=== PATIENT | male | born 1935 | race Caucasian/White ===

== ENCOUNTER 2023-11-21 11:30 | Inpatient (IN) | payer MEDICARE, SELFPAY ==
[2023-11-21] VITALS (12 sets, daily range): BP systolic 109–156; BP diastolic 48–82; BMI 26.1
[2023-11-21 04:11] LABS: % Basophils 0.3 % (0-2); % Eosinophils 1.2 % (0-6); % Immature Granulocytes 0.3 % (0-0.5); % Lymphocytes 20.5 % (20.5-51.1); % Monocytes 14.5 % (1.7-9.3); % Neutrophils 63.2 % (42.2-75.2); Absolute Lymphocytes 0.7 10^3/uL (1.2-3.4); Absolute Monocytes 0.5 10^3/uL (0.1-0.6); Absolute Neutrophils 2.1 10^3/uL (1.4-6.5); Hematocrit 32.4 % (39.0-52.0); Hemoglobin 11.4 g/dL (13.0-18.0); Mean Corp Hgb Conc. 35.2 g/dL (33.0-37.0); Mean Corpuscular Hgb 32.3 pg (27.0-31.0); Mean Corpuscular Volume 91.8 fL (80.0-94.0); Mean Platelet Volume 10.5 fL (7.4-10.4); Nucleated Red Blood Cells % 0 % (-); Platelet Count 120 10^3/uL (130-400); Red Blood Cell Count 3.53 10^6/uL (4.70-6.10); Red Cell Dist. Width 13.4 % (11.5-14.5); Urine Albumin Negative (Neg - Trace); Urine Bilirubin Negative (Negative); Urine Character Clear (Clear); Urine Color Yellow; Urine Glucose Negative (Negative); Urine Ketone Trace (Negative); Urine Leukocyte Negative (Negative); Urine Nitrite Negative (Negative); Urine Occult Blood Negative (Negative); Urine Urobilinogen Negative (Neg - 1+); White Blood Cell Count 3.4 10^3/uL (4.8-10.8)
[2023-11-21 04:30] LABS: Lactic Acid 1.1 mmol/L (0.7-2.0)
[2023-11-21 04:31] LABS: ALT (SGPT) 10 U/L (0-50); AST (SGOT) 20 U/L (17-59); Albumin 3.7 g/dl (3.5-5.0); Alkaline Phosphatase 93 U/L (38-126); Blood Urea Nitrogen 13 mg/dl (9-20); Calcium 8.7 mg/dl (8.4-10.2); Carbon Dioxide 24 mmol/L (22-30); Chloride 99 mmol/L (98-107); Estimated Creatinine Clearance 83 ml/min; Glucose 166 mg/dl (70-99); Lipase 51 U/L (23-300); Potassium 3.9 mmol/L (3.5-5.1); Sodium 129 mmol/L (135-145); Total Bilirubin 0.7 mg/dl (0.2-1.3); Total Protein 6.4 g/dl (6.3-8.2); eGFR > 60.00
[2023-11-21 04:42] LABS: COVID-19 Antigen Negative (Negative)
[2023-11-21 07:09] LABS: Magnesium 1.7 mg/dl (1.6-2.3)
[2023-11-21] MEDS: NSS 500 IV (07:37)
--- NOTE | 2023-11-21 07:41 | ED.GENMED ---
History of Present Illness
General
Chief Complaint: Abdominal Symptoms
Source: patient and family
Exam Limitations: none
Time Seen by Provider: 11/21/23 04:34
Nursing documentation reviewed up to this point in time: agreed with
Travel History
Have you had any contact with someone who has COVID-19?: No
Do you have any symptoms of coronavirus? Fever > 100 degrees, chills, cough, shortness of breath, sore throat, loss of taste or smell, muscle aches, or headache?: No
History of Present Illness
History of Present Illness:
Patient presents to ED secondary to multiple falls recently, along with nasal congestion and intermittent cough x 3 days. Per [facility], patient has had multiple vomiting episodes over the past 24 hours. Upon arrival, patient is found to be
febrile, which he was not aware of. Patient otherwise has no complaints. Patient is found to be somewhat somnolent upon arrival, which is unusual for the patient, per daughter. Denies diarrhea. Denies abdominal pain. Denies headache. [facility].
Past History
Past History
ED Past Medical History: GERD (Arthritis), HTN, Hypercholesterolemia and Other
Social History
Tobacco: Non-smoker
Alcohol: Daily
Personal:
Living: alone
Family History
Family History: Other ([place])
Review of Systems
Review of Systems
Allergies reviewed?: Yes
All Other Systems: ROS reviewed and negative except as documented in HPI and ROS
Constitutional: Reports no symptoms
EENT: Reports other (Nasal congestion)
Respiratory: Reports cough
Cardiac: Reports no symptoms
ABD/GI: Reports nausea and vomiting; Denies abdominal pain or diarrhea
Musculoskeletal: Reports no symptoms
Skin: Reports no symptoms
Neurological: Reports no symptoms; Denies dizzy or headache
Phy Exam
Physical Exam
Physical Exam:
Physical Exam
General: no apparent distress, not acutely ill. febrile
Head: nc/at. eomi
Neck: supple. no meningeal signs.
Heart: s1/s2 regular rate and rhythm, no murmur. equal radial pulses.
Lungs: no acute respiratory distress. clear bilaterally
Abdomen: normal bowel sounds. not tender.
Neuro: somnolent but easily arousable. no focal neurological deficits
Skin: no rash
Psychiatric: well kept. interactive and cooperative
Extremities: no edema. no calf tenderness.
Course
Orders/Labs/Results
Orders:
Orders
11/21/23 03:54
Complete Blood Count/With Diff Urgent
Comprehensive Metabolic Panel Urgent
Lactic Acid Urgent
Lipase Urgent
Magnesium Urgent
Comment: ADD ON
Osmolality, Random Urine Urgent
Date Specimen was Collected: 11/21/23
Time Specimen was Collected: 03:48
Comment: ADD ON
Serum Osmolality Urgent
Comment: ADD ON
Urinalysis Reflex To Culture Urgent
Date Specimen was Collected: 11/21/23
Time Specimen was Collected: 03:48
Urine Sodium Urgent
Date Specimen was Collected: 11/21/23
Time Specimen was Collected: 03:48
Comment: ADD ON
Blood Culture Q30M
LEAH Source: Blood/Venous
Specimen Description:
11/21/23 04:00
COVID-19 Antigen Urgent
Source: Nasal Swab
Blood Culture Q30M
LEAH Source: Blood/Venous
Specimen Description:
11/21/23 06:15
CT Head W/o Iv Contrast Urgent
Comment:
Reason For Exam: trauma
11/21/23 06:16
Add On- LAB Urgent
Tests Added?: magnesium
0.9% Sodium Chloride 500 ml [Nss] 500 ml IV BOLUS
CR Chest - 2 Views Urgent
Comment:
Reason For Exam: cough/congestion/fever
11/21/23 07:49
Add On- LAB Urgent
Tests Added?: urine sodium, urine osm, serum osm
Acetaminophen [Tylenol] 650 mg PO NOW STA
11/21/23 Lunch
Regular
At Your Request: Non-Participating
Does patient need a safe tray?: No
11/21/23 11:11
Admit/Transfer Patient As Directed
Co-Sign Provider:
Level of Care: Inpatient admission
Assign to:: Medical/Surgical
Physician / Group: dodd/hospitalist
Diagnosis: nausea/fever
Reason for Hospitalization: nausea/fever
Expected length of stay greater than two midnights?: Yes
ELOS- Estimated Length of Stay in days: 4
I certify the patient meets the requirements for IP care: Yes
11/21/23 11:13
Code Status As Directed
Resuscitation Status: Full Code
11/21/23 11:15
CR Abdomen - 2 Views Urgent
Comment:
Reason For Exam: nausea/vomiting
11/21/23 12:12
Influenza A+B Rapid Molecular Routine
LEAH Source: Nasal Swab
Specimen Description:
11/21/23 14:01
Acetaminophen [Tylenol] 650 mg PO Q4HPRN PRN
Bisacodyl [Dulcolax] 10 mg RECTAL [id number] PRN
Polyethylene Glycol Powder [Miralax] 17 grams PO DAILYPRN PRN
11/21/23 14:01
Activity As Directed
Activity Level: Out of Bed-Early Mobility
With Assistance
Vital Signs As Directed
Frequency: Per unit guidelines
DX Deep Vein Thrombosis Video Routine
11/21/23 15:00
0.9% Sodium Chloride 1000 ml [Nss] 1,000 ml IV 80 mls/hr
11/21/23 16:00
Meclizine [Antivert] 25 mg PO TID PRN
11/21/23 18:00
Enoxaparin Sodium [Lovenox] 40 mg SC QPM
11/21/23 20:00
Aspirin Chewable [Low Strength Aspirin] 81 mg PO BID
Docusate W/Senna [Senokot-S] 1 tablet PO BID
Magnesium Oxide 250 mg PO BID
11/21/23 22:00
Atorvastatin [Lipitor] 40 mg PO HS
Tamsulosin [Flomax] 0.4 mg PO HS
11/22/23 05:51
Basic Metabolic Panel IN AM
Complete Blood Count/With Diff IN AM
11/22/23 08:00
Lisinopril [Zestril] 2.5 mg PO DAILY
Oxybutynin Chloride [Ditropan] 5 mg PO BID
Pantoprazole [Protonix] 40 mg PO DAILY
11/23/23 06:00
Basic Metabolic Panel IN AM
11/24/23 06:00
Basic Metabolic Panel IN AM
11/25/23 06:00
Basic Metabolic Panel IN AM
Abnormal Lab Results
11/21/23
03:54
WBC 3.4 L 10^3/uL
(4.8-10.8)
RBC 3.53 L 10^6/uL
(4.70-6.10)
Hgb 11.4 L g/dL
(13.0-18.0)
Hct 32.4 L %
(39.0-52.0)
MCH 32.3 H pg
(27.0-31.0)
Plt Count 120 L 10^3/uL
(130-400)
MPV 10.5 H fL
(7.4-10.4)
Absolute Lymphs (auto) 0.7 L 10^3/uL
(1.2-3.4)
Monocytes % 14.5 H %
(1.7-9.3)
Sodium 129 L mmol/L
(135-145)
Glucose 166 H mg/dl
(70-99)
Urine Ketones Trace A
(Negative)
Urine Sodium 186 H mmol/L
(30-90)
11/21/23 03:54
11/21/23 03:54
Vital Signs
Initial and Last Documented VS:
Initial Vital Signs
Temp Pulse Resp BP Pulse Ox
98.5 F 82 16 154/48 96
11/21/23 03:41 11/21/23 03:41 11/21/23 03:41 11/21/23 03:41 11/21/23 03:41
Last Documented Vital Signs
Temp Pulse Resp BP Pulse Ox
99.3 F 51 18 140/69 95
11/22/23 07:00 11/22/23 07:00 11/22/23 07:00 11/22/23 07:00 11/22/23 07:00
MDM/Problems Addressed
MDM/Problems Addressed:
CT head: NAD.
Pt with febrile illness with hyponatremia, likely pre-renal. Secondary to mental status change, will admit for iv hydration and further assessment. No focal infection noted. As such, will withhold abx at this time.
Blood cx pending.
*Critical Care Note
Total Time (30-74mins, 75-104mins- exclusive of procedures): Not Applicable
ED Attending Note
-
Portions of this chart may have been created with voice recognition software.� Occasional wrong word or��sound alike� substitutions may have occurred due to the inherent limitations of voice recognition software.
Discharge Plan
Departure
Patient Disposition: Admit
Date of Disposition: 11/21/23
Time of Disposition: 07:46
Presentation/result/management discussed w/ accepting MD/DO: Hospitalist
Discharge Problem:
Fever, Hyponatremia
Interventions
Interventions:
*Risk Screen - Suicide Last Done: 11/21/23 03:41
*General Assessment Last Done: 11/21/23 03:41
*Neglect/Abuse Screening Last Done: 11/21/23 03:41
ED- Fall Risk Assessment Last Done: 11/21/23 13:50
*ED COVID-19 Vaccine History Last Done: 11/21/23 03:41
*Nursing Disposition Last Done: 11/21/23 13:50
QO-Ahsvqj-Cuelndxvxn Assessment Last Done: 11/21/23 03:45
Discharge Date and Time
Discharge Date/Time: 11/21/23 13:50
[2023-11-21 08:45] LABS: Osmolality Urine 456 mOsm/kg (300-900)
[2023-11-21 09:02] LABS: Urine Sodium 186 mmol/L (30-90)
[2023-11-21] MEDS: TYLENOL 650 MG PO (09:19)
[2023-11-21 09:29] LABS: Osmolality Serum 286 mOsm/kg (275-300)
--- NOTE | 2023-11-21 11:15 | HPS.HSE ---
Family Physician
-
Family Physician: Dave Pacheco
Chief Complaint
-
I do not have temperature
History of Present Illness
88 yo male who is presenting from retirement with complaint of dizziness and nausea. Patient states of complaint of dry heaves. Patient in the ER was found to have a fever. Patient denies any cough. States of sore throat recently. Denies
runny nose or nasal congestion. Denies any productive sputum. Denies any abdominal pain, vomiting or diarrhea. Denies any dysuria or hematuria. Denies any increased urgency or frequency of urination. Review ER records it seems patient had
multiple episode of vomiting at the retirement. Patient initially refused episode of vomiting to me.
Medical History
Past Medical History
Past Medical History: Reports Other
Additional Past Medical History:
GERD
Colitis
Arthritis
Hyperlipidemia
Primary hypertension
Mood disorder
BPH
Bilateral upper extremity essential tremors
Mild cognitive disorder
Past Surgical History: Reports Other
Additional Past Surgical History:
Bilateral hip replacement
Social History
Tobacco: Non-smoker
Living: Snf
Family History
Family History: Not pertinent
Allergies / Home Medications
Allergies reflects when Allergies were last updated in [employer].
Home Medications with original date entered in [employer]
Allergy/Medication List:
Allergies
Allergy/AdvReac Type Severity Reaction Status Date / Time
celecoxib [From Celebrex] Allergy Unknown Verified 11/21/23 03:47
Penicillins Allergy Hives Verified 11/21/23 03:47
Sulfa (Sulfonamide Allergy Hives Verified 11/21/23 03:47
Antibiotics)
tramadol Allergy Unknown Verified 11/21/23 03:47
Home Medications
aspirin 81 mg chewable tablet 81 mg PO BID Blood Clot Prevention/Tx 11/21/23
atorvastatin 40 mg tablet 40 mg PO HS High Cholesterol 11/21/23
balsam mikey-zinc oxide topical ointment 1 ea topical DAILY Skin Issues 11/21/23
escitalopram oxalate 10 mg tablet 10 mg PO DAILY depression/anxiety 11/21/23
lisinopril 5 mg tablet 2.5 mg PO DAILY Blood Pressure 11/21/23
magnesium 200 mg tablet 200 mg PO BID Supplement 11/21/23
magnesium hydroxide 400 mg/5 mL oral suspension (Milk of Magnesia) 30 ml PO HSPRN PRN if no bm by 3rd day 11/21/23
meclizine 25 mg tablet 25 mg PO TID PRN vertigo 11/21/23
nystatin 100,000 unit/gram topical powder 1 applic topical DAILYPRN PRN affected area 11/21/23
ondansetron 4 mg disintegrating tablet 4 mg PO Q6H PRN nausea and vomiting 11/21/23
ondansetron HCl 4 mg tablet 4 mg PO Q6HPRN PRN nausea 11/21/23
oxybutynin chloride 10 mg tablet,extended release 24 hr 10 mg PO DAILY Urinary Issue 11/21/23
pantoprazole 40 mg tablet,delayed release 40 mg PO DAILY Gastrointestinal Issue 11/21/23
tamsulosin 0.4 mg capsule 0.4 mg PO HS Urinary Issue 11/21/23
Review of Systems
-
History Source: Patient and Family
A 12 point ROS was completed and negative except as noted: Yes
Physical Exam
Vital Signs
Vital Signs
Temp Pulse Resp BP Pulse Ox
97.8 F 68 14 116/78 94
11/21/23 10:45 11/21/23 10:30 11/21/23 10:30 11/21/23 10:00 11/21/23 10:30
Physical Exam
General: Well Developed, Well Nourished and No Apparent Distress
HEENT: NormoCephalic, Moist mucous membranes and Atraumatic
Respiratory: Clear
Cardiac: S1/S2 and Regular Rhythm; No Murmur or Rub
GI: Soft, Non Tender, Non Distended and Normal Bowel Sounds; No Organomegaly
Rectal: Deferred by Provider
Musculoskeletal: No Clubbing, No Cyanosis and No Edema
Skin: No Rash
Neuro: Awake, Nonfocal/grossly intact and Tremors
Psych: Calm and Apparent Dementia
Laboratory Results
-
11/21/23 03:54
11/21/23 03:54
Laboratory Results
Lactic Acid 1.1 mmol/L (0.7-2.0) 11/21/23 03:54
Total Bilirubin 0.7 mg/dl (0.2-1.3) 11/21/23 03:54
AST 20 U/L (17-59) 11/21/23 03:54
ALT 10 U/L (0-50) 11/21/23 03:54
Alkaline Phosphatase 93 U/L (38-126) 11/21/23 03:54
Lipase 51 U/L (23-300) 11/21/23 03:54
Impression/Plan
-
#Fever likely secondary to viral syndrome
Will follow-up on the blood culture data
COVID and influenza negative
Chest x-ray negative for infiltrate
Abdominal negative for obstruction
Tylenol as needed trend CBC
If spikes fever will need to do further imaging and start broad-spectrum antibiotics
#Nausea and vomiting likely second to viral gastroenteritis
Monitor for diet tolerance
Persistent nausea vomiting will need further evaluation
Start patient on gentle IV fluids
#Mild hypovolemic hyponatremia
Start gentle IV fluids
Urine studies pending
Primary hypertension
Hold lisinopril
Hyperlipidemia
Continue statin
BPH/urinary incontinence
Continue Flomax and oxybutynin
Hyperlipidemia
Continue statin
Chronic thrombocytopenia
Monitor platelets
DVT prophylaxis Lovenox
Full code
Discussed with daughter Yelitza over the phone in detail. Daughter to locate living will to confirm CODE STATUS.
I spent a total of 78 minutes with the patient or on the floor. More than 50% of this time involved counseling and coordination of care.
[2023-11-21] MEDS: NSS 1000 IV (15:24)
[2023-11-21] MEDS: LOVENOX 40 MG SC (17:23)
[2023-11-21] MEDS: MAGNESIUM OXIDE 250 MG PO (19:44)
[2023-11-21] MEDS: LOW STRENGTH ASPIRIN 81 MG PO (19:44)
[2023-11-21] MEDS: SENOKOT-S 1 TABLET PO (19:45)
[2023-11-21] MEDS: FLOMAX 0.400000000000000022 MG PO (21:14)
[2023-11-21] MEDS: LIPITOR 40 MG PO (21:14)
[2023-11-22] MEDS: NSS 1000 IV (02:56)
[2023-11-22 06:17] LABS: % Immature Granulocytes 0.3 % (0-0.5); % Lymphocytes 17.2 % (20.5-51.1); % Monocytes 11.6 % (1.7-9.3); % Neutrophils 69.9 % (42.2-75.2); Absolute Lymphocytes 0.5 10^3/uL (1.2-3.4); Absolute Monocytes 0.4 10^3/uL (0.1-0.6); Absolute Neutrophils 2.1 10^3/uL (1.4-6.5); Hematocrit 31.2 % (39.0-52.0); Hemoglobin 10.9 g/dL (13.0-18.0); Mean Corp Hgb Conc. 34.9 g/dL (33.0-37.0); Mean Corpuscular Hgb 32.4 pg (27.0-31.0); Mean Corpuscular Volume 92.9 fL (80.0-94.0); Mean Platelet Volume 10.5 fL (7.4-10.4); Nucleated Red Blood Cells % 0 % (-); Platelet Count 111 10^3/uL (130-400); Red Blood Cell Count 3.36 10^6/uL (4.70-6.10); Red Cell Dist. Width 13.5 % (11.5-14.5)
[2023-11-22 06:38] LABS: Blood Urea Nitrogen 13 mg/dl (9-20); Calcium 8.5 mg/dl (8.4-10.2); Carbon Dioxide 27 mmol/L (22-30); Chloride 100 mmol/L (98-107); Estimated Creatinine Clearance 97 ml/min; Glucose 109 mg/dl (70-99); Potassium 4.2 mmol/L (3.5-5.1); Sodium 130 mmol/L (135-145); eGFR > 60.00
[2023-11-22 07:00] VITALS: BP 140/69
[2023-11-22] MEDS: SENOKOT-S 1 TABLET PO (08:20)
[2023-11-22] MEDS: ZESTRIL 2.5 MG PO (08:20)
[2023-11-22] MEDS: DITROPAN 5 MG PO (08:20)
[2023-11-22] MEDS: PROTONIX 40 MG PO (08:21)
[2023-11-22] MEDS: MAGNESIUM OXIDE 250 MG PO (08:22)
[2023-11-22] MEDS: LOW STRENGTH ASPIRIN 81 MG PO (08:22)
--- NOTE | 2023-11-22 11:02 | W.PN.HOSP.TC ---
Today's Communication/Plan
-
DC fluids
Monitor diet tolerance
PT OT eval pending
Possible DC later today
Assessment / Plan
Assessment / Plan
#Fever likely secondary to viral syndrome
Will follow-up on the blood culture data remains negative
COVID and influenza negative
Chest x-ray negative for infiltrate
Abdominal negative for obstruction
Tylenol as needed trend CBC
Afebrile greater than 24 hours
#Nausea and vomiting likely second to viral gastroenteritis
Monitor for diet tolerance
Persistent nausea vomiting will need further evaluation
Tolerating diet
#Mild hypovolemic hyponatremia
Improving. DC fluids and monitor p.o. tolerance
Primary hypertension
Continue lisinopril
Hyperlipidemia
Continue statin
BPH/urinary incontinence
Continue Flomax and oxybutynin
Hyperlipidemia
Continue statin
Chronic thrombocytopenia
Monitor platelets
DVT prophylaxis Lovenox
Full code
PT/OT eval
Discussed with daughter Zari over the phone in detail.
Anticipated Discharge: Today
Subjective/Interval History
-
Date of Service: November 22, 2023
afebrile
tolerated breakfast
on room air
no cough
Objective Data
-
Labs:
Laboratory Results
11/22/23
05:51
WBC 3.0 L
Hgb 10.9 L
Hct 31.2 L
Plt Count 111 L
Sodium 130 L
Potassium 4.2
Chloride 100
Carbon Dioxide 27
BUN 13
Creatinine 0.6 L
Glucose 109 H
Calcium 8.5
Vital Signs:
Vital Signs
Temp Pulse Resp BP Pulse Ox
99.3 F 51 18 140/69 95
11/22/23 07:00 11/22/23 08:20 11/22/23 07:00 11/22/23 08:20 11/22/23 07:00
I&O
11/21/23 11/22/23 11/23/23
06:59 06:59 06:59
Intake Total 1160 / 1160
Balance 1160 / 1160
Physical Exam
-
General: Well Developed and No Apparent Distress
HEENT: Normocephalic, Atraumatic and Moist Mucous Membranes
Respiratory: Clear to Auscultation
Cardiac: Regular Rhythm and S1/S2; Negative Murmur, Rub or Gallop
GI: Soft, Nontender, Nondistended and Normal Bowel Sounds; Negative Organomegaly
Rectal: Deferred by Provider
Musculoskeletal: No Clubbing, No Cyanosis and No Edema
Skin: Negative Rash
Neuro: Awake, Tremors (B/ LUE) and Nonfocal/Grossly Intact
Psych: Apparent Dementia
Data Reviewed
-
Total Time Spent with Patient (in minutes): 55
[2023-11-22 11:17] VITALS: BP 118/62; PULSE 69; O2SAT 97
[2023-11-22 11:18] VITALS: BP 118/62; PULSE 59; O2SAT 97
--- NOTE | 2023-11-22 12:02 | CM ---
Addendum entered by Cassy Ramirez 11/22/23 14:42:
Transport at 4PM for pt to return to the [facility]
Lance made aware at facility
Pts mariusz Hameed aware of transport time
Addendum entered by Cassy James 11/22/23 14:03:
Spoke with Lance at [facility]. Aware pt to return today
Plan - Return to [facility]
R -[phone], ext - [phone]
F - [phone]
Addendum entered by Cassy James 11/22/23 13:01:
Pt for d/c
Called [facility] - to return call - pt for d/c
Original Note:
Spoke with pts amriusz Hameed
Pt lives at the [facility] in personal Care
Baseline - feeds self, needs assist with ADL's, needs some assist to wheel chair, needs assist with ambulation
Family would like for pt to return to the [facility] when medically ready
PCP - Dr Karthik Zaldivar
Pharm -at the [facility]
Pending PT eval
Plan - return to [facility] when medically ready
--- NOTE | 2023-11-22 12:36 | W.DCSUMMARY ---
Discharge Summary
Discharge Data
Date of Admission: 11/21/23
Date of Discharge: 11/22/23
-
Pending Results: No
Hospital Course
88-year-old male past medical history of suspected dementia with, mild cognitive decline, hypertension, hyperlipidemia, BPH, hyperlipidemia, chronic thrombocytopenia who was presented from [facility] with nausea vomiting. Patient was found to
have a mild fever of 100.4 in the hospital. Infectious workup was negative including COVID and influenza. Chest x-ray negative for infiltrates. Abdominal x-ray was negative for obstruction. Patient without any further episode of nausea or
vomiting. Patient was tolerating diet. Fever nausea vomiting likely second to viral syndrome. Afebrile for greater than 24 hours. Blood cultures remain negative. UA was bland. Nausea vomiting resolved. Sodium improved with IV fluid. Patient
was seen by PT and OT and was insisting on going back to previous living situation. Daughter also agreed with the patient. Patient be discharged back to previous living situation.
Discharge Plan
-
Patient Disposition: Assisted Living
Discharge Diagnosis/Procedures: Fever, nausea and vomiting likely secondary to viral syndrome
Mild hypovolemic hyponatremia
Condition: Fair
Diet: As tolerated and Regular
Activity: With assistance and As tolerated
Driving Restrictions: Not until seen by your Dr
Blood Work: BMP in 3-5 days via primary doctor.
Other Services: VN
Referrals:
Dave Pacheco MD [Family Provider] - in less than 1 week
Prescriptions:
Continued
atorvastatin 40 mg Tablet
40 mg PO HS
oxybutynin chloride 10 mg Tablet Extended Release 24hr
10 mg PO DAILY
magnesium hydroxide [Milk of Magnesia] 400 mg/5 mL Suspension
30 ml PO HSPRN PRN (Reason: if no bm by 3rd day)
Rx Instructions:
if no bm in 3 days
tamsulosin 0.4 mg Capsule
0.4 mg PO HS
meclizine 25 mg Tablet
25 mg PO TID PRN (Reason: vertigo)
pantoprazole 40 mg Tablet,Delayed Release (Dr/Ec)
40 mg PO DAILY
lisinopril 5 mg Tablet
2.5 mg PO DAILY
ondansetron 4 mg Tablet,Disintegrating
4 mg PO Q6H PRN (Reason: nausea and vomiting)
magnesium 200 mg Tablet
200 mg PO BID
escitalopram oxalate 10 mg Tablet
10 mg PO DAILY
balsam mikey-zinc oxide Ointment
1 ea TOPICAL DAILY
ondansetron HCl 4 mg Tablet
4 mg PO Q6HPRN PRN (Reason: nausea)
nystatin 100,000 unit/gram Powder
1 applic TOPICAL DAILYPRN PRN (Reason: affected area)
aspirin 81 MG tablet,chewable
81 mg PO BID
Discharge Orders:
Discharge Patient (As Directed); Ordered 11/22/23
Ordered By: Britton Huang
Discharge Date and Time
Print Language: CANADIAN
[2023-11-22 15:00] VITALS: BP 152/70
[2023-11-22] MEDS: NSS IV (16:37)
== END 2023-11-22 17:15 | DRG 392 ==
LOC: 3 WEST ACU 11:30
PROVIDERS: Emergency Medicine; ADMITTING PHYSICIAN Hospitalist; EMERGENCY PHYSICIAN Emergency Medicine; FAMILY PHYSICIAN Family Medicine
DX: A08.4 Viral intestinal infection, unspecified (principal); E87.1 Hypo-osmolality and hyponatremia; Z11.52 Encounter for screening for COVID-19; E86.1 Hypovolemia; I10 Essential (primary) hypertension; D69.6 Thrombocytopenia, unspecified; E78.00 Pure hypercholesterolemia, unspecified
CPT/HCPCS: 70450; 71046; 74019; 80048; 80053; 81003; 83605; 83690; 83735; 83930; 83935; 84300; 85025; 87040; 87502; 87811; 96360; 97162; 97166; 99285

== ENCOUNTER 2024-05-04 19:35 | Emergency (ER) | payer MEDICARE, SELFPAY ==
[2024-05-04 19:40] VITALS: BP 125/110
[2024-05-04 19:44] VITALS: BP 125/110
--- NOTE | 2024-05-04 19:56 | ED.GENMED ---
History of Present Illness
General
Chief Complaint: Fall
Source: patient
Exam Limitations: none
Time Seen by Provider: 05/04/24 19:42
History of Present Illness
History of Present Illness:
See MDM
Past History
Past History
ED Past Medical History: GERD (Arthritis), HTN, Hypercholesterolemia and Other
Social History
Tobacco: Non-smoker
Alcohol: Daily
Personal:
Living: alone
Family History
Family History: Other ([place])
Phy Exam
Physical Exam
Physical Exam:
See MDM
Course
Orders/Labs/Results
Orders:
Orders
05/04/24 19:56
CT Head W/o Iv Contrast Urgent
Comment:
Reason For Exam: fall
Ondansetron Orally Disint [Zofran Odt (Orally Disintegrating)] 4 mg PO NOW STA
CR Chest - 2 Views Urgent
Comment:
Reason For Exam: fall, central R chest pain
Vital Signs
Initial and Last Documented VS:
Initial Vital Signs
Temp Pulse Resp BP Pulse Ox
98.1 F 57 16 125/110 92
05/04/24 19:40 05/04/24 19:40 05/04/24 19:40 05/04/24 19:40 05/04/24 19:40
Last Documented Vital Signs
Temp Pulse Resp BP Pulse Ox
98.1 F 57 16 138/109 95
05/04/24 19:40 05/04/24 19:40 05/04/24 19:40 05/04/24 21:00 05/04/24 21:15
MDM/Problems Addressed
Differential Diagnosis Includes:
HPI and MDM Narrative:
88-year-old male presenting for evaluation after a fall. Patient states he slipped trying to get into his wheelchair. He thinks he might hit his head. He complains of nausea. Patient found to have abrasion to his central right chest. Patient
denies chest pain. Patient has superficial skin tear to his right forearm without bony tenderness. Given age and fall, will obtain CT head and chest x-ray
Physical exam
General: Well appearing and non-toxic
HEENT: protecting airway. Pupils equal and reactive
Neck: Nontender, supple
CV: No evidence of cyanosis. Regular rate and rhythm
Chest: Small abrasion to right anterior chest along manubrium
Resp: No accessory muscle use. Lungs clear
Abd: Non-distended
Extremities: Small abrasion to right forearm without bony tenderness
Neuro: alert
Psych: Normal affect
Skin: Intact
Problems Addressed including Acute and Chronic Conditions affecting care:
1. Fall
Acuity: acute
Prognosis: stable
Details: Appears to be slip and fall. Given age and injury, will obtain CT head and chest x-ray
Updates
CT head and chest x-ray clear. Patient remains well-appearing and nontoxic. Patient and daughter at bedside feel comfortable with discharge back to his facility
Differential Diagnosis (but not limited to): Contusion, concussion, intracranial hemorrhage
Testing considered: CT neck but he has no tenderness
Drug therapy (if applicable): OTC meds, please see d/c instruction regarding Rx drugs
Amount and/or Complexity of Data Reviewed
Clinical info obtained from: Patient. EMS stating that the nursing staff did not call 911 since patient was acting appropriately. Patient himself wanted to be evaluated
External data reviewed: N/A
Labs I independently reviewed (but not limited to): N/A
Radiology: The CT scan was personally and independently reviewed. In addition, official CT report reviewed.
X-ray independently reviewed: Chest x-ray clear and without evidence of rib or sternal fracture
Pulse Ox: not hypoxic
EKG independently reviewed: N/A
Rubber Press Operator: N/A
Critical Care: N/A
Risk of Complication:
Social Determinants of health: Good social support
Discussed with other providers: N/A
Escalation of Care includes Admit/Obs: After being observed in the Emergency Department, pt stable for discharge.
Occasional wrong word or 'sound a like' substitutions may have occurred due to the inherent limitations of voice recognition software. Read the chart carefully and recognize, using context, where substitutions have occurred.
*Critical Care Note
Total Time (30-74mins, 75-104mins- exclusive of procedures): Not Applicable
ED Attending Note
-
Portions of this chart may have been created with voice recognition software.� Occasional wrong word or��sound alike� substitutions may have occurred due to the inherent limitations of voice recognition software.
Discharge Plan
Departure
Patient Disposition: Home (Routine Discharge)
Date of Disposition: 05/04/24
Time of Disposition: 22:03
Patient with high blood pressure during this ER visit?: No
Discharge Problem:
Chest wall contusion
Prescriptions:
No Action
atorvastatin 40 mg Tablet
40 mg PO HS
oxybutynin chloride 10 mg Tablet Extended Release 24hr
10 mg PO DAILY
magnesium hydroxide [Milk of Magnesia] 400 mg/5 mL Suspension
30 ml PO HSPRN PRN (Reason: if no bm by 3rd day)
Rx Instructions:
if no bm in 3 days
tamsulosin 0.4 mg Capsule
0.4 mg PO HS
meclizine 25 mg Tablet
25 mg PO TID PRN (Reason: vertigo)
pantoprazole 40 mg Tablet,Delayed Release (Dr/Ec)
40 mg PO DAILY
lisinopril 5 mg Tablet
2.5 mg PO DAILY
ondansetron 4 mg Tablet,Disintegrating
4 mg PO Q6H PRN (Reason: nausea and vomiting)
magnesium 200 mg Tablet
200 mg PO BID
escitalopram oxalate 10 mg Tablet
10 mg PO DAILY
balsam mikey-zinc oxide Ointment
1 ea TOPICAL DAILY
ondansetron HCl 4 mg Tablet
4 mg PO Q6HPRN PRN (Reason: nausea)
nystatin 100,000 unit/gram Powder
1 applic TOPICAL DAILYPRN PRN (Reason: affected area)
aspirin 81 MG tablet,chewable
81 mg PO BID
Referrals:
Dave Pacheco MD [Family Provider] -
Activity Restrictions/Additional Instructions:
Please return for any worsening symptoms.
You may return at any time if you have further concerns.
Please follow up with your doctor at the first available appointment, preferably this week.
Thank you for choosing [facility].
Interventions
Interventions:
*Risk Screen - Suicide Last Done: 05/04/24 19:40
*General Assessment Last Done: 05/04/24 19:40
*Neglect/Abuse Screening Last Done: 05/04/24 19:40
*ED COVID-19 Vaccine History Last Done: 05/04/24 19:40
ED-Musculoskeletal Assessment Last Done: 05/04/24 19:49
ED- Neurological Assessment Last Done: 05/04/24 19:49
ED-Skin Assessment Last Done: 05/04/24 19:49
Discharge Date and Time
Print Language: ARMENIAN
[2024-05-04 20:00] VITALS: BP 137/98
[2024-05-04] MEDS: ZOFRAN ODT (ORALLY DISINTEGRATING) 4 MG PO (20:53)
[2024-05-04 20:54] VITALS: BP 130/88
[2024-05-04 21:00] VITALS: BP 138/109
[2024-05-05 00:21] VITALS: BP 137/97
== END 2024-05-05 00:25 ==
LOC: EMR 19:35
PROVIDERS: EMERGENCY PHYSICIAN Student in an Organized Health Care Education/Training Program; FAMILY PHYSICIAN Family Medicine
DX: S20.219A Contusion of unspecified front wall of thorax, initial encounter (principal); S20.311A Abrasion of right front wall of thorax, initial encounter; W19.XXXA Unspecified fall, initial encounter; E78.00 Pure hypercholesterolemia, unspecified; I10 Essential (primary) hypertension; K21.9 Gastro-esophageal reflux disease without esophagitis
CPT/HCPCS: 99284; 70450; 71046

== ENCOUNTER 2024-09-26 00:15 | Inpatient (IN) | payer MEDICARE, SELFPAY ==
[2024-09-25] VITALS (10 sets, daily range): BP systolic 129–159; BP diastolic 68–104; BMI 25.8
[2024-09-25 16:45] LABS: Glucose - Point of Care 125 mg/dl (70-99)
[2024-09-25 18:52] LABS: % Basophils 0.1 % (0-2); % Eosinophils 0.2 % (0-6); % Immature Granulocytes 0.6 % (0-0.5); % Lymphocytes 11.2 % (20.5-51.1); % Monocytes 5.4 % (1.7-9.3); % Neutrophils 82.5 % (42.2-75.2); Absolute Immature Granulocytes 0.1 10^3/uL (0-0.05); Absolute Lymphocytes 0.9 10^3/uL (1.2-3.4); Absolute Monocytes 0.4 10^3/uL (0.1-0.6); Absolute Neutrophils 6.6 10^3/uL (1.4-6.5); Hematocrit 31.3 % (39.0-52.0); Hemoglobin 10.8 g/dL (13.0-18.0); Mean Corp Hgb Conc. 34.5 g/dL (33.0-37.0); Mean Corpuscular Hgb 32.5 pg (27.0-31.0); Mean Corpuscular Volume 94.3 fL (80.0-94.0); Mean Platelet Volume 9.9 fL (7.4-10.4); Nucleated Red Blood Cells % 0 % (-); Platelet Count 180 10^3/uL (130-400); Red Blood Cell Count 3.32 10^6/uL (4.70-6.10); Red Cell Dist. Width 13.2 % (11.5-14.5)
[2024-09-25 19:03] LABS: INR 1.08; PT 14.6 Sec (11.4-14.6)
[2024-09-25 19:04] LABS: APTT 28.5 Sec (23.4-35.0)
[2024-09-25 19:11] LABS: ALT (SGPT) 11 U/L (0-50); AST (SGOT) 17 U/L (17-59); Albumin 3.6 g/dl (3.5-5.0); Alkaline Phosphatase 95 U/L (38-126); Blood Urea Nitrogen 16 mg/dl (9-20); Calcium 8.7 mg/dl (8.4-10.2); Carbon Dioxide 25 mmol/L (22-30); Chloride 100 mmol/L (98-107); Estimated Creatinine Clearance 79 ml/min; Glucose 155 mg/dl (70-99); Potassium 4.3 mmol/L (3.5-5.1); Sodium 132 mmol/L (135-145); Total Bilirubin 0.9 mg/dl (0.2-1.3); Total Protein 6.2 g/dl (6.3-8.2); eGFR > 60.00
--- NOTE | 2024-09-25 21:41 | ED.GENMED ---
History of Present Illness
General
Chief Complaint: Fall
Source: patient and family
Exam Limitations: clinical condition
Time Seen by Provider: 09/25/24 15:13
History of Present Illness
History of Present Illness:
89-year-old male with a history of Parkinson's disease who presents from the [facility]. He states he was trying to tie his shoes and he fell forward. He had a pair glasses on that broke. Patient reports that his face hurts where he was
injured. Denies chest pain. Denies syncope. Is not anticoagulated
Past History
Past History
ED Past Medical History: GERD (Arthritis), HTN, Hypercholesterolemia and Other (Parkinson's disease)
Social History
Tobacco: Non-smoker
Alcohol: Daily
Personal:
Living: alone
Family History
Family History: Other ([place])
Phy Exam
Physical Exam
Physical Exam:
CONSTITUTIONAL Patient alert and oriented to person, place and time. Well-appearing. Vital signs reviewed.
HEAD large hematoma to the left periorbital region extending to the left maxilla. Superficial abrasion in that area extending down to the left angle of the mandible. Does have a 1 cm laceration under the left eye. Small laceration above the
left brow
EYES eyelids normal to inspection, Extraocular muscles intact, Conjunctiva normal, Sclera normal.
NECK normal range of motion, Trachea midline, no jugular venous distention. No midline tenderness
RESPIRATORY CHEST No respiratory distress noted, Chest expansion equal
ABDOMEN abdomen nontender, Bowel sounds normal. No distention.
BACK normal inspection, no obvious deformities
UPPER EXTREMITY no cyanosis, no edema. Ecchymosis noted to the left shoulder. Left upper extremity is flaccid
LOWER EXTREMITY no cyanosis, no edema. Bilateral knee abrasions
NEURO Speech normal, No focal motor deficits, Stacy coma scale 15, Memory normal, Cranial Nerves intact to screening exam.
SKIN skin warm, dry, and normal in color.
Course
Orders/Labs/Results
Orders:
Orders
09/25/24 15:13
Foot, Right 3 View [CR Foot - Right Min 3 Views] Urgent
Comment:
Reason For Exam: fall
09/25/24 15:14
CT Cervical Spine W/o Iv Contr Urgent
Comment:
Reason For Exam: fall
CT Head W/o Iv Contrast Urgent
Comment:
Reason For Exam: fall
09/25/24 18:42
Complete Blood Count/With Diff Urgent
Comprehensive Metabolic Panel Urgent
PTT Urgent
Prothrombin Time Urgent
09/25/24 18:54
CT Head & Neck Angio W/wo IV Urgent
Comment:
Reason For Exam: LUE weakness, fall
09/25/24 19:26
Shoulder, Left, Trauma CR [CR Shoulder, Trauma - Left] Urgent
Comment:
Reason For Exam: fall
09/25/24 23:00
Flush (0.9% Sodium Chloride) [Flush (Nss)] See Dose Instructions IV PER PROTOCOL
Abnormal Lab Results
09/25/24 09/25/24
16:43 18:42
RBC 3.32 L 10^6/uL
(4.70-6.10)
Hgb 10.8 L g/dL
(13.0-18.0)
Hct 31.3 L %
(39.0-52.0)
MCV 94.3 H fL
(80.0-94.0)
MCH 32.5 H pg
(27.0-31.0)
Abs Immat Gran (auto) 0.1 H 10^3/uL
(0-0.05)
Absolute Neuts (auto) 6.6 H 10^3/uL
(1.4-6.5)
Absolute Lymphs (auto) 0.9 L 10^3/uL
(1.2-3.4)
Immature Gran % 0.6 H %
(0-0.5)
Neutrophils % 82.5 H %
(42.2-75.2)
Lymphocytes % 11.2 L %
(20.5-51.1)
Sodium 132 L mmol/L
(135-145)
Glucose 155 H mg/dl
(70-99)
Total Protein 6.2 L g/dl
(6.3-8.2)
POC Glucose 125 H mg/dl
(70-99)
09/25/24 18:42
09/25/24 18:42
Vital Signs
Initial and Last Documented VS:
Initial Vital Signs
Temp Pulse Resp BP Pulse Ox
98.1 F 76 16 144/100 97
09/25/24 15:13 09/25/24 15:13 09/25/24 15:13 09/25/24 15:13 09/25/24 15:13
Last Documented Vital Signs
Temp Pulse Resp BP Pulse Ox
98.3 F 69 20 151/68 97
09/25/24 21:58 09/25/24 20:15 09/25/24 20:15 09/25/24 20:00 09/25/24 20:15
Procedures
Laceration Closure
Left Forehead:
Status of Wound: clean
Size of Wound in cm: 1
Description of Wound Edges: ragged
Preparation: cleaned with saline
Wound exploration: explored to base- no FB
Type of Closure: single layer closure and Dermabond-skin glue
Left Face:
Status of Wound: clean
Description of Wound Edges: sharp
Preparation: cleaned with saline
Wound exploration: explored to base- no FB
Type of Closure: Dermabond-skin glue
MDM/Problems Addressed
MDM/Problems Addressed:
Head injury, left upper extremity weakness, cord compression, cervical neural foraminal narrowing, facial abrasion laceration
*Radiology
Radiology exam reviewed: preliminary read by ED provider (No obvious hemorrhage) and radiology read reviewed
*Pulse Oximetry
Patient hypoxic: no
*Critical Care Note
Total Time (30-74mins, 75-104mins- exclusive of procedures): 60 minutes
Data Reviewed
Source: patient and family
Prescriptions/Medications Considered But Not Given:
Consider TNK and the possibility of stroke but in light of his head and face injury, unable to give TNK. Also question whether injury is related to trauma and neck injury.
Patient Management
Discussion with other providers: Hospitalist and Contract Administration Manager (Case discussed with neurosurgery Dr. Murillo who recommends admission here at [place] for MRI tomorrow)
Escalation/DeEscalation of care consider admission/obs:
Case discussed with trauma at [facility]
89-year-old who presents after fall. Notes later that his left arm weak. No right-sided symptoms to suggest central cord syndrome. Question whether this could be related to cervical neural foraminal narrowing and cord compression versus stroke.
The patient is very clear that he fell because of issues and not because of weakness. That history makes CVA little bit less likely but he certainly is at risk. At this point, he is not a TNK candidate in light of his trauma. Family at bedside
and aware. Cervical collar placed
ED Attending Note
-
Portions of this chart may have been created with voice recognition software.� Occasional wrong word or��sound alike� substitutions may have occurred due to the inherent limitations of voice recognition software.
Discharge Plan
Departure
Patient Disposition: Admit
Date of Disposition: 09/25/24
Time of Disposition: 22:05
Admit to: Telemetry
Presentation/result/management discussed w/ accepting MD/DO: Hospitalist
Discharge Problem:
Facial hematoma, cervical neural foraminal narrowing, Arm weakness, r/o CVA
Prescriptions:
No Action
atorvastatin 40 mg Tablet
40 mg PO QPM
oxybutynin chloride 10 mg Tablet Extended Release 24hr
10 mg PO DAILY
magnesium hydroxide [Milk of Magnesia] 400 mg/5 mL Suspension
30 ml PO [id number] PRN (Reason: if no bm by 3rd day)
tamsulosin 0.4 mg Capsule
0.4 mg PO QPM
meclizine 25 mg Tablet
25 mg PO Q8HPRN PRN (Reason: vertigo)
pantoprazole 40 mg Tablet,Delayed Release (Dr/Ec)
40 mg PO DAILY
lisinopril 5 mg Tablet
2.5 mg PO DAILY
escitalopram oxalate 10 mg Tablet
10 mg PO DAILY
ondansetron HCl 4 mg Tablet
4 mg PO Q6HPRN PRN (Reason: nausea)
nystatin 100,000 unit/gram Powder
1 applic TOPICAL BID
acetaminophen 325 mg Tablet
650 mg PO Q6HPRN PRN (Reason: mild pain)
aspirin 81 mg Tablet,Delayed Release (Dr/Ec)
81 mg PO DAILY
triamcinolone acetonide [Nasacort Allergy] 55 mcg Aerosol,[place]
2 spray INTRANASAL DAILY
bupropion HCl 150 mg Tablet Extended Release 24 Hr
150 mg PO DAILY
Balmex Diaper Rash 11.3 % Cream
1 applic TOPICAL DAILY
magnesium oxide 200 mg magnesium Tablet
200 mg PO BID
Referrals:
Dave Pahceco MD [Family Provider] -
Interventions
Interventions:
*Risk Screen - Suicide Last Done: 09/25/24 15:13
*General Assessment Last Done: 09/25/24 15:13
*Neglect/Abuse Screening Last Done: 09/25/24 15:13
*ED- Fall Risk Assessment Last Done: 09/25/24 15:31
*ED COVID-19 Vaccine History Last Done: 09/25/24 15:26
ED-Musculoskeletal Assessment Last Done: 09/25/24 19:48
ED- Neurological Assessment Last Done: 09/25/24 21:46
ED-Skin Assessment Last Done: 09/25/24 15:24
Discharge Date and Time
Print Language: SURINAMESE
--- NOTE | 2024-09-25 23:13 | HPS.HSE ---
Addendum entered and electronically signed by Anthony Andujar DO 09/26/24 00:29:
Patient seen and examined independently. Agree with findings and plan as set forth by MIRELLA Quiroga.
Patient is an 89y M with PMH significant for Parkinsonism (tremors and ambulatory dysfunction), hypertension and GERD who presents to ED for evaluation s/p fall at [facility]. Patient states that he was leaning forward to get a pair of
shoes when he lost his balance and fell from his wheelchair - landing on his L side. He was found down by staff and sent to the ED for further evaluation and treatment. Patient complains of L eye discomfort and neck pain since the fall. He notes
that he has not been able to move his L arm since the fall.
He takes baby ASA daily. No other antiplatelets / anticoagulants. He denies any prior history of stroke, [place], etc.
Ass:
Trauma / Fall
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
Left Periorbital Hematoma
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
Benign Hypertension
Chronic Hyponatremia - at baseline
Anemia of Chronic Disease - at baseline
BPH
Anxiety / Depression
Parkinsonism
Plan:
Admit to monitored bed for further evaluation and treatment.
Multiple imaging studies done in the ED without evidence of intracranial bleeding, orbital fracture / displacement, etc.
No fracture / dislocation at the L shoulder.
Dense L hemiparesis - including L facial droop and dysarthria - which seems most c/w R MCA CVA.
Not TNK candidate secondary to antecedent trauma.
Continue daily ASA.
Follow neuro exam for any changes.
Neuro eval, MRI brain in the AM.
Patient with significant L periorbital hematoma and unable to open eye without assistance.
Cold application, pain control - follow for improvement.
MR C-spine in the AM for further evaluation of foraminal and central stenoses.
Neurosurgery consulted.
Maintain cervical collar pending evaluation.
PT / OT / Speech evaluations.
Supportive care / pain control / etc.
Original Note:
Family Physician
-
Family Physician: Dave Pacheco
Chief Complaint
-
fall
History of Present Illness
89 year old with PMH for anxiety, GERD,spinal stenosis, tremors, back pain presented to us s/p fall. patient bent over from sitting on the wheel chair to tie his lace on the shoe. he fell forwards hitting his head, knees on the floor. since the
fall, he is not able to move his left upper arm. patient complaining of neck pain. denied headache. denied fever, chills, chest pain, sob. denied abdominal pain,n,v,d. denied dysuria or hematuria.
head neck CTA, head CT with severe stenosis, soft tissue hematoma, mild multilevel cervical spinal cord compression. laceration noted on left forehead and face, glued in ER. admitting for further managment.
Medical History
Past Medical History
Past Medical History: Reports Other
Additional Past Medical History:
rosacea
htn
hld
tremor
Parkinson
anixety
Past Surgical History: Reports Other
Additional Past Surgical History:
b/l hip replacements
Social History
Tobacco: Non-smoker
Alcohol: Occasional
Drug: None
Living: Assisted Living
Family History
Family History: Not pertinent
Allergies / Home Medications
Allergies reflects when Allergies were last updated in [facility].
Home Medications with original date entered in [facility]
Allergy/Medication List:
Allergies
Allergy/AdvReac Type Severity Reaction Status Date / Time
celecoxib [From Celebrex] Allergy Unknown Verified 09/25/24 15:35
Penicillins Allergy Hives Verified 09/25/24 15:35
Sulfa (Sulfonamide Allergy Hives Verified 09/25/24 15:35
Antibiotics)
tramadol Allergy Unknown Verified 09/25/24 15:35
Home Medications
atorvastatin 40 mg tablet 40 mg PO QPM High Cholesterol 11/21/23
escitalopram oxalate 10 mg tablet 10 mg PO DAILY depression/anxiety 11/21/23
lisinopril 5 mg tablet 2.5 mg PO DAILY Blood Pressure 11/21/23
magnesium hydroxide 400 mg/5 mL oral suspension (Milk of Magnesia) 30 ml PO [id number] PRN if no bm by 3rd day 11/21/23
meclizine 25 mg tablet 25 mg PO Q8HPRN PRN vertigo 11/21/23
nystatin 100,000 unit/gram topical powder 1 applic topical BID rash 11/21/23
ondansetron HCl 4 mg tablet 4 mg PO Q6HPRN PRN nausea 11/21/23
oxybutynin chloride 10 mg tablet,extended release 24 hr 10 mg PO DAILY Urinary Issue 11/21/23
pantoprazole 40 mg tablet,delayed release 40 mg PO DAILY Gastrointestinal Issue 11/21/23
tamsulosin 0.4 mg capsule 0.4 mg PO QPM Urinary Issue 11/21/23
acetaminophen 325 mg tablet 650 mg PO Q6HPRN PRN mild pain 09/25/24
aspirin 81 mg tablet,delayed release 81 mg PO DAILY 09/25/24
bupropion HCl 150 mg 24 hr tablet, extended release 150 mg PO DAILY 09/25/24
magnesium oxide 200 mg PO BID 09/25/24
triamcinolone acetonide 55 mcg nasal spray aerosol (Nasacort Allergy) 2 spray intranasal DAILY 09/25/24
zinc oxide-vitamin B5-vit E 11.3% topical cream 1 applic topical DAILY 09/25/24
Review of Systems
-
Constitutional: Reports No Symptoms
EENT: Reports No Symptoms
Respiratory: Reports No Symptoms
Cardiac: Reports No Symptoms
Abdomen/GI: Reports No Symptoms
: Reports No Symptoms
Musculoskeletal: Reports No Symptoms
Skin: Reports Other (laceration on his for head, shoulder abrasion, knee abrastion)
Neurological: Reports No Symptoms
Endocrine: Reports No Symptoms
Hematologic/Lymphatic: Reports No Symptoms
Psych: Reports No Symptoms
Physical Exam
Vital Signs
Vital Signs
Temp Pulse Resp BP Pulse Ox
98.3 F 69 20 151/68 97
09/25/24 21:58 09/25/24 20:15 09/25/24 20:15 09/25/24 20:00 09/25/24 20:15
Physical Exam
General: Well Developed, Well Nourished and No Apparent Distress
HEENT: NormoCephalic, Moist mucous membranes and Atraumatic
Respiratory: Clear
Cardiac: S1/S2 and Regular Rhythm; No Murmur or Rub
GI: Soft, Non Tender, Non Distended and Normal Bowel Sounds; No Organomegaly
Rectal: Deferred by Provider
Musculoskeletal: No Clubbing, No Cyanosis, No Edema and Other (left UE weakness)
Skin: Rash and Other (forehead and cheek laceration with skin glue, )
Neuro: AO x 3 and Nonfocal/grossly intact
Psych: Calm
Laboratory Results
-
09/25/24 18:42
09/25/24 18:42
Laboratory Results
PT 14.6 Sec (11.4-14.6) 09/25/24 18:42
INR 1.08 09/25/24 18:42
APTT 28.5 Sec (23.4-35.0) 09/25/24 18:42
Total Bilirubin 0.9 mg/dl (0.2-1.3) 09/25/24 18:42
AST 17 U/L (17-59) 09/25/24 18:42
ALT 11 U/L (0-50) 09/25/24 18:42
Alkaline Phosphatase 95 U/L (38-126) 09/25/24 18:42
Data Reviewed
-
Diagnostic Radiology: Report Reviewed by me
CT Scan: Report Reviewed by me
Lab Data: Labs Reviewed by me
Impression/Plan
-
#left UE weakness related to falls vs/CVA
MRI of brain and neck in AM
-cervical collar in place
-neurosurgeon consulted
-shoulder x ray with Chronic insertional tendinosis of the left rotator cuff.Moderate osteoarthritis of the left acromioclavicular joint.Severe left-sided facet joint arthrosis at C3/C4 and C4/C5.Severe calcific atherosclerotic plaque in the
thoracic aorta and left carotid bifurcation.
-head and neck CTA with the impression severe stenosis in the proximal brachiocephalic artery and proximal left subclavian artery, proximal right and left iCA, both proximal vertebral arteries, severe left neural formainal narrowing at both levels,
mild multiple cervical spinal cord compression. large acute scalp soft tissue hematoma.
-head CT with large acute scalp soft tissue hematoma.
-cervical spine CT with SEVERE LEFT-SIDED FACET JOINT ARTHROSIS at C3/C4 and C4/C5 causing severe left neural foraminal narrowing at both levels.
-foot x ray pending
-asa/statin
-obtain a1c,lipid profile
-neurology consulted
#hematoma/ laceration to forehead/face
#left shoulder abrasion and left knee abrasion
-derma glued the forehead and face laceration
-ctm
#anemia of chronic disease
-hgb stable at 10.8
-no active bleeding
-ctm
#Chronic hyponatremia
-na 132
-ctm
#Primary hypertension
-Continue lisinopril
#Hyperlipidemia
-Continue statin
#depression/anxiety
-bupropion,escitalopram continued
#BPH/urinary incontinence
-Continue Flomax and oxybutynin
#Hyperlipidemia
-Continue statin
#GERD
-PPI continued
DVT prophylaxis scd
Full code
PT/OT eval
[2024-09-26] VITALS (22 sets, daily range): BP systolic 131–174; BP diastolic 60–85; PULSE 57–60; O2SAT 94–95; BMI 24.7
[2024-09-26] MEDS: ADACEL 0.5 ML IM (00:27)
[2024-09-26 00:47] LABS: Magnesium 1.8 mg/dl (1.6-2.3)
[2024-09-26 05:35] LABS: Hematocrit 29.2 % (39.0-52.0); Hemoglobin 10.3 g/dL (13.0-18.0); Mean Corp Hgb Conc. 35.3 g/dL (33.0-37.0); Mean Corpuscular Hgb 33.6 pg (27.0-31.0); Mean Corpuscular Volume 95.1 fL (80.0-94.0); Mean Platelet Volume 9.9 fL (7.4-10.4); Platelet Count 151 10^3/uL (130-400); Red Blood Cell Count 3.07 10^6/uL (4.70-6.10); Red Cell Dist. Width 13.1 % (11.5-14.5); White Blood Cell Count 4.4 10^3/uL (4.8-10.8)
[2024-09-26 06:01] LABS: Blood Urea Nitrogen 12 mg/dl (9-20); Calcium 8.7 mg/dl (8.4-10.2); Carbon Dioxide 27 mmol/L (22-30); Chloride 104 mmol/L (98-107); Estimated Creatinine Clearance 79 ml/min; Glucose 94 mg/dl (70-99); HDL Cholesterol 34 mg/dl; LDL Cholesterol, Calculated 47 mg/dl; Potassium 4.1 mmol/L (3.5-5.1); Sodium 135 mmol/L (135-145); Total Cholesterol 90 mg/dl (50-199); Triglyceride 47 mg/dl (10-149); Very Low Density Lipoprotein 9 mg/dl (0-30); eGFR > 60.00
--- NOTE | 2024-09-26 09:54 | PTOTSP ---
Speech Therapy Swallowing Assessment
Patient with symptoms concerning for an oral/pharyngeal dysphagia including lingual weakness, disorganized transfer to swallow sequence with liquids and coughing/throat clearing. He is considered at an elevated risk for aspiration. History of
Parkinson's is also a chronic risk factors. Dentures are not at DH, therefore unable to manage solids at this time.
Recommend
1. Level 4/Puree Diet and Mildly Thick Liquids
2. Meds whole in applesauce
3. Aspiration precautions.
4. VSE to objectively assess pharyngeal swallow and presence of aspiration and to assist in identifying most appropriate diet level.
ST to follow and modifiy diet and incorporate strategies as needed.
[2024-09-26] MEDS: LEXAPRO 10 MG PO (10:45)
[2024-09-26] MEDS: MAGNESIUM OXIDE 250 MG PO ×2 (10:45→20:07)
[2024-09-26] MEDS: ZESTRIL 2.5 MG PO (10:46)
[2024-09-26] MEDS: PROTONIX 40 MG PO (10:48)
[2024-09-26] MEDS: LOW STRENGTH ASPIRIN 81 MG PO (10:49)
[2024-09-26] MEDS: WELLBUTRIN XL (24 hour extended release) 150 MG PO (10:53)
--- NOTE | 2024-09-26 11:22 | W.PN.HOSP.TC ---
Today's Communication/Plan
-
See plan
Assessment / Plan
Assessment / Plan
Impression:
Presentation with fall of wheelchair.
Left hemiparesis.
Left periorbital hematoma
Right force and fifth toe nondisplaced fractures of proximal phalanges
Other conditions
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
Essential hypertension
Chronic anemia.
Chronic recurrent hyponatremia
Dyslipidemia.
GERD
BPH.
Urinary incontinence.
Depression/anxiety
Plan:
Presents from assisted living facility after fall on the chair
Exam with left upper and lower extremity paresis
CT head with no acute abnormalities.
CTA with diffuse atherosclerotic disease including bilateral carotid artery and vertebral artery stenosis.
Cervical spine CT with multilevel severe DJD and spinal cord compression
Patient with no prior history of arrhythmias.
ECG sinus rhythm
Has been on aspirin prior to presentation
Given his presentation including trauma and large left periorbital hematoma patient was not a candidate for lytic treatment.
Further neurologic evaluation with concern for right MCA territory stroke
Neurology consulted
MRI of the brain.
Consider vascular surgery evaluation depends on MRI findings.
Echocardiogram.
LDL 47, continue statin
Speech and swallow evaluation obtained. Diet has been advanced with aspiration precautions pur�ed with mildly thickened liquids.
Physical therapy evaluation
With concern for multilevel DJD and reported cord compression of unknown chronicity on CT scan plan is for additional imaging with MRI of the cervical spine
Neurosurgery consulted.
Probable Parkinson's disease with pending outpatient evaluation.
Not on any related medications prior to admission.
Essential hypertension.
Goal normotension.
Continue preadmission regimen including lisinopril.
Monitor blood pressure trend.
BPH with history of incontinence per
Bladder scan for retention.
Continue Flomax
Depression/anxiety
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
Full code.
Mechanical DVT prophylaxis
Anticipated Discharge: 24 - 48 hours
Subjective/Interval History
-
Date of Service: September 26, 2024
Objective Data
-
Labs:
Laboratory Results
09/26/24
05:12
WBC 4.4 L
Hgb 10.3 L
Hct 29.2 L
Plt Count 151
Sodium 135
Potassium 4.1
Chloride 104
Carbon Dioxide 27
BUN 12
Creatinine 0.7
Glucose 94
Calcium 8.7
Vital Signs:
Vital Signs
Temp Pulse Resp BP Pulse Ox
97.8 F 72 17 146/70 98
09/26/24 03:02 09/26/24 10:46 09/26/24 09:51 09/26/24 10:46 09/26/24 09:51
Physical Exam
-
General: Well Developed and No Apparent Distress
HEENT: Normocephalic, Moist Mucous Membranes and Other (Left periorbital hematoma)
Respiratory: Clear to Auscultation
Cardiac: Regular Rhythm and S1/S2; Negative Murmur, Rub or Gallop
GI: Soft, Nontender, Nondistended and Normal Bowel Sounds; Negative Organomegaly
Rectal: Deferred by Provider
Musculoskeletal: No Clubbing, No Cyanosis and No Edema
Skin: Negative Rash
Neuro: Awake, Alert, Oriented, AO x 3 and Other (Left hemiparesis. Resting tremor at the right upper extremity)
--- NOTE | 2024-09-26 14:10 | CARDSERVLU ---
Echocardiogram with Lumason completed after protocol screening completed. Allergies verified.
Patent IV site: _Left antecubital 20 G PC site clear____
IV site flushed with 0.9% NaCl pre and post administration.
Diluted bolus method utilized to enhance visualization of ventricular boyd.
Total volume given: _3.5___ mL
Patient tolerated all procedures well without complications.
--- NOTE | 2024-09-26 14:12 | CON.NEURO ---
Neuro Assessment/Plan
Assessment
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
Brain MRI Images reviewed with patient and his family.
with his advanced age, underlying parkinson's, the diseased brain does not recover well; any meaningful improvement is unlikely
Plan
ASA 81, Lipitor 40
goals of care
Consultation
Order
Date of Consultation: 09/26/24
Requesting Provider: Honorio Anaya
Reason for Consult: left sided weakness
Subjective/Objective
Subjective Data
Date of Service: September 26, 2024
From ED notes:
Patient is an 89y M with PMH significant for Parkinsonism (tremors and ambulatory dysfunction), hypertension and GERD who presents to ED for evaluation s/p fall at [facility]. Patient states that he was leaning forward to get a pair of
shoes when he lost his balance and fell from his wheelchair - landing on his L side. He was found down by staff and sent to the ED for further evaluation and treatment. Patient complains of L eye discomfort and neck pain since the fall. He notes
that he has not been able to move his L arm since the fall.
He takes baby ASA daily. No other antiplatelets / anticoagulants. He denies any prior history of stroke, LA, etc.
Initially had some movement in his left leg in the ED; today entire left side is flaccid
Objective Data
Vital Signs
Temp Pulse Resp BP Pulse Ox
37.7 C 60 19 167/82 96
09/26/24 13:59 09/26/24 14:00 09/26/24 14:00 09/26/24 14:00 09/26/24 14:00
Lab Results
09/26/24 05:12
09/26/24 05:12
PT 14.6 Sec (11.4-14.6) 09/25/24 18:42
INR 1.08 09/25/24 18:42
APTT 28.5 Sec (23.4-35.0) 09/25/24 18:42
Sodium 135 mmol/L (135-145) 09/26/24 05:12
Potassium 4.1 mmol/L (3.5-5.1) 09/26/24 05:12
BUN 12 mg/dl (9-20) 09/26/24 05:12
Glucose 94 mg/dl (70-99) 09/26/24 05:12
Calcium 8.7 mg/dl (8.4-10.2) 09/26/24 05:12
LDL Cholesterol, Calc 47 mg/dl 09/26/24 05:12
Patient Allergies
celecoxib [From Celebrex] Allergy (Verified 09/25/24 15:35)
Unknown
Penicillins Allergy (Verified 09/25/24 15:35)
Hives
Sulfa (Sulfonamide Antibiotics) Allergy (Verified 09/25/24 15:35)
Hives
tramadol Allergy (Verified 09/25/24 15:35)
Unknown
CVA Assessment
NIH Stroke Score
Level of Consciousness: 0 - Alert
LOC Questions: 0-Answers both correctly
LOC Commands: 0-Performs both correctly
Best Horizontal Gaze: 0-Normal
Visual Corea: 0=Normal, no visual loss
Facial Palsy: 3=Complete paralysis
Motor - Right Arm: 0=No drift 10 seconds
Motor - Left Arm: 4=No movement
Motor - Right Le-No drift 5 seconds
Motor - Left Le-No movement
Limb Ataxia: 0-Absent
Sensation: 0-Normal
Best Language: 0-No aphasia
Dysarthria: 1-Mild slurring
Extinction and Inattention: 0-No abnormality
Total Score:: 12
Tenecteplase Contraindications
Inclusion and Exclusion criteria reviewed: Yes
Reasons for NON-Tx with Thrombolytics ABSOLUTE Exclusions: Intracranial sx, spinal sx, or serious head trauma within 3 months
Physical Exam
-
AAOx3, speech clear
dense left UMN facial droop
dense left flacid hemiparesis 0/5 no movement
sensation intact to touch
Medications
-
Active Medications
Generic Name Dose Route Start Last Admin
Trade Name Freq PRN Reason Stop Dose Admin
Acetaminophen 650 mg 09/26/24 00:18
Acetaminophen 650 Mg Rectal Suppository RECTAL 10/24/24 00:17
Q4HPRN PRN
GORDON, mild pain, or temp >100.4F
Acetaminophen 650 mg 09/26/24 00:18
Acetaminophen 325 Mg Tablet PO 10/24/24 00:17
Q4HPRN PRN
GORDON, mild pain, or temp >100.4F
Aspirin 81 mg 09/26/24 08:00 09/26/24 10:49
Aspirin 81 Mg Chewable Tablet PO 10/24/24 07:59 81 mg
DAILY SAIMA Administration
Atorvastatin Calcium 40 mg 09/26/24 18:00
Atorvastatin (Lipitor) 40 Mg Tablet PO 10/24/24 17:59
QPM SAIMA
Bisacodyl 10 mg 09/26/24 00:18
Bisacodyl 10 Mg Rectal Suppository RECTAL 10/24/24 00:17
[id number] PRN
constipation
Bupropion HCl 150 mg 09/26/24 08:00 09/26/24 10:53
Bupropion (24hr) Extended Release 150 Mg Tablet PO 10/24/24 07:59 150 mg
DAILY SAIMA Administration
Escitalopram Oxalate 10 mg 09/26/24 08:00 09/26/24 10:45
Escitalopram 10 Mg Tablet PO 10/24/24 07:59 10 mg
DAILY SAIMA Administration
Lisinopril 2.5 mg 09/26/24 08:00 09/26/24 10:46
Lisinopril 2.5 Mg Tablet PO 10/24/24 07:59 2.5 mg
DAILY SAIMA Administration
Magnesium Oxide 250 mg 09/26/24 08:00 09/26/24 10:45
Magnesium Oxide 500 Mg Tablet PO 10/24/24 07:59 250 mg
BID SAIMA Administration
Pantoprazole Sodium 40 mg 09/26/24 08:00 09/26/24 10:48
Pantoprazole 40 Mg Delayed Release Tablet PO 10/24/24 07:59 40 mg
DAILY SAIMA Administration
Polyethylene Glycol 17 grams 09/26/24 00:18
Polyethylene Glycol Powder 17 Grams Packet PO 10/24/24 00:17
DAILYPRN PRN
constipation
Senna/Docusate Sodium 1 tablet 09/26/24 00:18
Docusate W/Senna (Kiley-Colace) Tablet PO 10/24/24 00:17
BIDPRN PRN
constipation
Sodium Chloride 0 flush 09/25/24 23:00
Sodium Chloride 0.9% (Flush) Syringe IV 10/23/24 22:59
PER PROTOCOL SAIMA
Tamsulosin HCl 0.4 mg 09/26/24 18:00
Tamsulosin 0.4 Mg Capsule PO 10/24/24 17:59
QPM SAIMA
Home Medications
�Medication �Instructions �Recorded
atorvastatin 40 mg tablet 40 mg PO QPM High Cholesterol 11/21/23
escitalopram oxalate 10 mg tablet 10 mg PO DAILY depression/anxiety 11/21/23
lisinopril 5 mg tablet 2.5 mg PO DAILY Blood Pressure 11/21/23
magnesium hydroxide 400 mg/5 mL 30 ml PO [id number] PRN if no bm by 11/21/23
oral suspension (Milk of Magnesia) 3rd day
meclizine 25 mg tablet 25 mg PO Q8HPRN PRN vertigo 11/21/23
nystatin 100,000 unit/gram topical 1 applic topical BID rash 11/21/23
powder
ondansetron HCl 4 mg tablet 4 mg PO Q6HPRN PRN nausea 11/21/23
oxybutynin chloride 10 mg 10 mg PO DAILY Urinary Issue 11/21/23
tablet,extended release 24 hr
pantoprazole 40 mg tablet,delayed 40 mg PO DAILY Gastrointestinal 11/21/23
release Issue
tamsulosin 0.4 mg capsule 0.4 mg PO QPM Urinary Issue 11/21/23
acetaminophen 325 mg tablet 650 mg PO Q6HPRN PRN mild pain 09/25/24
aspirin 81 mg tablet,delayed 81 mg PO DAILY Blood Clot 09/25/24
release Prevention/Tx
bupropion HCl 150 mg 24 hr tablet, 150 mg PO DAILY Mental Health 09/25/24
extended release
magnesium oxide 200 mg PO BID Supplement 09/25/24
triamcinolone acetonide 55 mcg 2 spray intranasal DAILY Congestion 09/25/24
nasal spray aerosol (Nasacort
Allergy)
zinc oxide-vitamin B5-vit E 11.3% 1 applic topical DAILY Skin Issues 09/25/24
topical cream
[2024-09-26] MEDS: LIPITOR 40 MG PO (17:34)
[2024-09-26] MEDS: FLOMAX 0.4 MG PO (17:34)
[2024-09-27 03:15] VITALS: BP 154/78
[2024-09-27 07:48] VITALS: BP 150/59
[2024-09-27 08:42] LABS: Hematocrit 31.5 % (39.0-52.0); Hemoglobin 10.9 g/dL (13.0-18.0); Mean Corp Hgb Conc. 34.6 g/dL (33.0-37.0); Mean Corpuscular Hgb 32.7 pg (27.0-31.0); Mean Corpuscular Volume 94.6 fL (80.0-94.0); Mean Platelet Volume 10.1 fL (7.4-10.4); Platelet Count 150 10^3/uL (130-400); Red Blood Cell Count 3.33 10^6/uL (4.70-6.10); Red Cell Dist. Width 13.1 % (11.5-14.5); White Blood Cell Count 4.2 10^3/uL (4.8-10.8)
[2024-09-27] MEDS: MAGNESIUM OXIDE 250 MG PO ×2 (10:07→19:32)
[2024-09-27] MEDS: ZESTRIL 2.5 MG PO (10:09)
[2024-09-27] MEDS: LEXAPRO 10 MG PO (10:11)
[2024-09-27] MEDS: WELLBUTRIN XL (24 hour extended release) 150 MG PO (10:11)
[2024-09-27] MEDS: LOW STRENGTH ASPIRIN 81 MG PO (10:11)
[2024-09-27] MEDS: PROTONIX 40 MG PO (10:11)
[2024-09-27 11:12] VITALS: BP 126/62
--- NOTE | 2024-09-27 14:34 | CM ---
Addendum entered by Joanna Egan 09/27/24 14:48:
Plan; Acute rehab at [place], referral sent to [place] at [facility].
Original Note:
specialist managers reviewed patient's chart and met with patient and daughter, Jazzmine at bedside, patient is [facility]. Patient resides at the [facility] Personal care patient requires assist with adl's and uses a walker or w/c with ambulation, case
subcontracts manager spoke with daughter's Jazzmine and Zari and they are requesting acute rehab for patient, family preservation caseworker reached out to physician for physiatry consult.
PCP: Dr Pacheco
[facility]
[phone] Ext [phone]
--- NOTE | 2024-09-27 14:47 | PTOTSP ---
Video Swallow Examination
Overall, patient presents with a moderate oral/pharyngeal dysphagia characterized by reduced tongue base and pharyngeal strength, intermittent delays with swallow onset and laryngeal vestibular closure, and reduced sensory awareness. Collectively,
this resulted in trace to mild oral/tongue base and pharyngeal stasis, trace laryngeal penetration of thin and mildly thick liquids, and silent aspiration of thin liquids. Esophagus is slow to empty.
Recommend
1. Continue on modified diet of Level 4/Puree and Mildly Thick Liquids.
2. Meds whole in applesauce.
3. Aspiration precautions.
4. Allow unlimited ice chips and occasional single sips of water after oral care per [facility] protocol.
5. ST to follow with goals of improving lingual and pharyngeal strength, airway protection, swallow timing, use of strategies and diet advancement at appropriate.
[2024-09-27 14:50] VITALS: BP 135/66; PULSE 67; O2SAT 97
[2024-09-27 15:47] VITALS: BP 159/78
--- NOTE | 2024-09-27 15:52 | W.PN.HOSP.TC ---
Today's Communication/Plan
-
Advance diet with aspiration precautions.
DAPT baseline statin
Continue current antihypertensive regimen with goal of normotension.
Physiatry/PT eval
Assessment / Plan
Assessment / Plan
Impression:
Presentation with fall of wheelchair.
Acute CVA, right thalamus/posterior limb internal capsule infarct
Left hemiparesis.
Status post fall with left periorbital hematoma
Right 4th and fifth toe nondisplaced fractures of proximal phalanges
Other conditions
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
Essential hypertension
Chronic anemia.
Chronic recurrent hyponatremia
Dyslipidemia.
GERD
BPH.
Urinary incontinence.
Depression/anxiety
Plan:
Right thalamus/posterior limb internal capsule 13 mm acute infarct
Neurologic sequela with persistent left hemiparesis, otherwise with no cortical symptoms such as vision changes, neglect, aphasia. Dysphagia likely pre-existing with Parkinson's disease.
Was not a candidate for lytic treatment given significant periorbital trauma/hematoma upon presentation
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
ECG and telemetry with no evidence of arrhythmia
Echocardiogram with preserved biventricular function and no cardioembolic source
Given underlying Parkinson's disease, overall performance status, prognosis for neurologic recovery remains guarded
Start DAPT with aspirin and Plavix for 21 days. PPI
LDL 47. Continue statin
Physical therapy/physiatry assessment
Speech and swallow evaluation, diet has been advanced with aspiration precautions
Cervical spine DJD, multilevel.
Imaging including MRI reviewed with neurosurgery. No evidence of cord compression. His current neurologic findings related to acute CVA. No surgical intervention required.
Probable Parkinson's disease with pending outpatient evaluation.
Not on any related medications prior to admission.
Essential hypertension.
Goal normotension.
Continue preadmission regimen including lisinopril.
Monitor blood pressure trend.
BPH with history of incontinence per
Bladder scan for retention.
Continue Flomax
Depression/anxiety
On escitalopram/bupropion [employer]
Full code.
Mechanical DVT prophylaxis
Anticipated Discharge: 24 - 48 hours
Subjective/Interval History
-
Date of Service: September 27, 2024
Objective Data
-
Labs:
Laboratory Results
09/27/24
07:36
WBC 4.2 L
Hgb 10.9 L
Hct 31.5 L
Plt Count 150
Vital Signs:
Vital Signs
Temp Pulse Resp BP Pulse Ox
98.0 F 74 18 159/78 97
09/27/24 15:47 09/27/24 15:47 09/27/24 15:47 09/27/24 15:47 09/27/24 15:47
Physical Exam
-
General: Well Developed and No Apparent Distress
HEENT: Normocephalic, Moist Mucous Membranes and Other (Left periorbital hematoma)
Respiratory: Clear to Auscultation
Cardiac: Regular Rhythm and S1/S2; Negative Murmur, Rub or Gallop
GI: Soft, Nontender, Nondistended and Normal Bowel Sounds; Negative Organomegaly
Rectal: Deferred by Provider
Musculoskeletal: No Clubbing, No Cyanosis and No Edema
Skin: Negative Rash
Neuro: Awake, Alert, Oriented, AO x 3 and Other (Left hemiparesis. Resting tremor at the right upper extremity)
[2024-09-27] MEDS: PLAVIX 75 MG PO (16:03)
[2024-09-27] MEDS: LIPITOR 40 MG PO (17:25)
[2024-09-27] MEDS: FLOMAX 0.4 MG PO (17:25)
[2024-09-28 00:01] VITALS: BP 148/88
[2024-09-28 06:09] LABS: Hematocrit 33.3 % (39.0-52.0); Hemoglobin 11.2 g/dL (13.0-18.0); Mean Corp Hgb Conc. 33.6 g/dL (33.0-37.0); Mean Corpuscular Hgb 32.1 pg (27.0-31.0); Mean Corpuscular Volume 95.4 fL (80.0-94.0); Mean Platelet Volume 9.9 fL (7.4-10.4); Platelet Count 143 10^3/uL (130-400); Red Blood Cell Count 3.49 10^6/uL (4.70-6.10); White Blood Cell Count 4.6 10^3/uL (4.8-10.8)
[2024-09-28] MEDS: TYLENOL 650 MG PO (06:13)
[2024-09-28 07:00] VITALS: BP 150/78
[2024-09-28] MEDS: PROTONIX 40 MG PO (09:46)
[2024-09-28] MEDS: WELLBUTRIN XL (24 hour extended release) 150 MG PO (09:46)
[2024-09-28] MEDS: ZESTRIL 2.5 MG PO (09:46)
[2024-09-28] MEDS: LEXAPRO 10 MG PO (09:46)
[2024-09-28] MEDS: PLAVIX 75 MG PO (09:47)
[2024-09-28] MEDS: LOW STRENGTH ASPIRIN 81 MG PO (09:47)
[2024-09-28] MEDS: MAGNESIUM OXIDE 250 MG PO ×2 (09:47→20:00)
--- NOTE | 2024-09-28 14:36 | W.PN.HOSP.TC ---
Today's Communication/Plan
-
cont current management
Assessment / Plan
Assessment / Plan
Impression:
Presentation with fall of wheelchair.
Acute CVA, right thalamus/posterior limb internal capsule infarct
Left hemiparesis.
Status post fall with left periorbital hematoma
Right 4th and fifth toe nondisplaced fractures of proximal phalanges
Other conditions
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
Essential hypertension
Chronic anemia.
Chronic recurrent hyponatremia
Dyslipidemia.
GERD
BPH.
Urinary incontinence.
Depression/anxiety
Plan:
09/27/24--family asking about starting Parkinson meds, will defer to neuro--therapy eval rec SNF but referral placed for [facility]--cont asa/plavix
Right thalamus/posterior limb internal capsule 13 mm acute infarct
Neurologic sequela with persistent left hemiparesis, otherwise with no cortical symptoms such as vision changes, neglect, aphasia. Dysphagia likely pre-existing with Parkinson's disease.
Was not a candidate for lytic treatment given significant periorbital trauma/hematoma upon presentation
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
ECG and telemetry with no evidence of arrhythmia
Echocardiogram with preserved biventricular function and no cardioembolic source
Given underlying Parkinson's disease, overall performance status, prognosis for neurologic recovery remains guarded
Start DAPT with aspirin and Plavix for 21 days. PPI
LDL 47. Continue statin
Physical therapy/physiatry assessment
Speech and swallow evaluation, diet has been advanced with aspiration precautions
Cervical spine DJD, multilevel.
Imaging including MRI reviewed with neurosurgery. No evidence of cord compression. His current neurologic findings related to acute CVA. No surgical intervention required.
Probable Parkinson's disease with pending outpatient evaluation.
Not on any related medications prior to admission.
Essential hypertension.
Goal normotension.
Continue preadmission regimen including lisinopril.
Monitor blood pressure trend.
BPH with history of incontinence per
Bladder scan for retention.
Continue Flomax
Depression/anxiety
On escitalopram/bupropion [employer]
Full code.
Mechanical DVT prophylaxis
Anticipated Discharge: > 48 hours
Subjective/Interval History
-
Date of Service: September 28, 2024
pt without c/o--family at bedside asking about starting Parkinson meds
Objective Data
-
Labs:
Laboratory Results
09/28/24
05:01
WBC 4.6 L
Hgb 11.2 L
Hct 33.3 L
Plt Count 143
Vital Signs:
max temp for 24 hours
09/27/24
15:47
Temp 98.0 F
Vital Signs
Temp Pulse Resp BP Pulse Ox
97.4 F 72 24 150/78 99
09/28/24 07:00 09/28/24 09:46 09/28/24 07:00 09/28/24 09:46 09/28/24 07:00
I&O
09/27/24 09/28/24 09/29/24
06:59 06:59 06:59
Intake Total 480 / 480
Balance 480 / 480
Review of Systems
-
All other systems: Reviewed and negative
Physical Exam
-
General: Appears Chronically Ill
HEENT: Normocephalic; Negative Atraumatic (bruising around left eye and down neck--eyebrow area with trauma) or Oxygen
Respiratory: Clear to Auscultation; Negative Wheezes or Rhonchi
Cardiac: Regular Rhythm and S1/S2; Negative Murmur
GI: Soft, Nontender, Nondistended and Normal Bowel Sounds
Musculoskeletal: No Clubbing and No Cyanosis
Neuro: Tremors
Psych: Calm
[2024-09-28 15:00] VITALS: BP 141/75
[2024-09-28] MEDS: LIPITOR 40 MG PO (18:06)
[2024-09-28] MEDS: FLOMAX 0.4 MG PO (18:07)
[2024-09-28 23:00] VITALS: BP 160/80
[2024-09-29 07:00] VITALS: BP 156/85
[2024-09-29 07:20] LABS: Hematocrit 30.2 % (39.0-52.0); Hemoglobin 10.8 g/dL (13.0-18.0); Mean Corp Hgb Conc. 35.8 g/dL (33.0-37.0); Mean Corpuscular Hgb 32.8 pg (27.0-31.0); Mean Corpuscular Volume 91.8 fL (80.0-94.0); Mean Platelet Volume 11.2 fL (7.4-10.4); Platelet Count 137 10^3/uL (130-400); Red Blood Cell Count 3.29 10^6/uL (4.70-6.10); Red Cell Dist. Width 12.9 % (11.5-14.5); White Blood Cell Count 4.4 10^3/uL (4.8-10.8)
[2024-09-29 07:47] LABS: Blood Urea Nitrogen 17 mg/dl (9-20); Calcium 8.8 mg/dl (8.4-10.2); Carbon Dioxide 27 mmol/L (22-30); Chloride 101 mmol/L (98-107); Estimated Creatinine Clearance 92 ml/min; Glucose 115 mg/dl (70-99); Sodium 135 mmol/L (135-145); eGFR > 60.00
[2024-09-29 09:30] VITALS: BP 99/58; PULSE 58
--- NOTE | 2024-09-29 10:00 | PTCARENOTE ---
Patient is drowsy this am. Am meds delayed due to patient not able to stay awake, will continue to check on patient frequently throughout shift. Daughter at bedside. Patient is AAOx3 when awake.
[2024-09-29] MEDS: PLAVIX 75 MG PO (11:58)
[2024-09-29] MEDS: LEXAPRO 10 MG PO (11:58)
[2024-09-29] MEDS: WELLBUTRIN XL (24 hour extended release) 150 MG PO (11:58)
[2024-09-29] MEDS: PROTONIX 40 MG PO (11:58)
[2024-09-29] MEDS: LOW STRENGTH ASPIRIN 81 MG PO (11:58)
[2024-09-29] MEDS: MAGNESIUM OXIDE 250 MG PO ×2 (12:01→20:33)
[2024-09-29] MEDS: ZESTRIL 2.5 MG PO (12:01)
[2024-09-29 15:00] VITALS: BP 154/79
--- NOTE | 2024-09-29 15:55 | W.PN.HOSP.TC ---
Today's Communication/Plan
-
await Osorio eval
Assessment / Plan
Assessment / Plan
Impression:
Presentation with fall of wheelchair.
Acute CVA, right thalamus/posterior limb internal capsule infarct
Left hemiparesis.
Status post fall with left periorbital hematoma
Right 4th and fifth toe nondisplaced fractures of proximal phalanges
Other conditions
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
Essential hypertension
Chronic anemia.
Chronic recurrent hyponatremia
Dyslipidemia.
GERD
BPH.
Urinary incontinence.
Depression/anxiety
Plan:
09/29/24-- no changes--await Osorio eval
09/28/24--family asking about starting Parkinson meds, will defer to neuro--therapy eval rec SNF but referral placed for [place]--cont asa/plavix
Right thalamus/posterior limb internal capsule 13 mm acute infarct
Neurologic sequela with persistent left hemiparesis, otherwise with no cortical symptoms such as vision changes, neglect, aphasia. Dysphagia likely pre-existing with Parkinson's disease.
Was not a candidate for lytic treatment given significant periorbital trauma/hematoma upon presentation
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
ECG and telemetry with no evidence of arrhythmia
Echocardiogram with preserved biventricular function and no cardioembolic source
Given underlying Parkinson's disease, overall performance status, prognosis for neurologic recovery remains guarded
Start DAPT with aspirin and Plavix for 21 days. PPI
LDL 47. Continue statin
Physical therapy/physiatry assessment
Speech and swallow evaluation, diet has been advanced with aspiration precautions
Cervical spine DJD, multilevel.
Imaging including MRI reviewed with neurosurgery. No evidence of cord compression. His current neurologic findings related to acute CVA. No surgical intervention required.
Probable Parkinson's disease with pending outpatient evaluation.
Not on any related medications prior to admission.
Essential hypertension.
Goal normotension.
Continue preadmission regimen including lisinopril.
Monitor blood pressure trend.
BPH with history of incontinence per
Bladder scan for retention.
Continue Flomax
Depression/anxiety
On escitalopram/bupropion [employer]
Full code.
Mechanical DVT prophylaxis
Anticipated Discharge: 24 - 48 hours
Subjective/Interval History
-
Date of Service: September 29, 2024
awoke pt from sleep--no c/o
Objective Data
-
Labs:
Laboratory Results
09/29/24
06:12
WBC 4.4 L
Hgb 10.8 L
Hct 30.2 L
Plt Count 137
Sodium 135
Potassium 4.0
Chloride 101
Carbon Dioxide 27
BUN 17
Creatinine 0.6 L
Glucose 115 H
Calcium 8.8
Vital Signs:
max temp for 24 hours
09/28/24
23:00
Temp 98.3 F
Vital Signs
Temp Pulse Resp BP Pulse Ox
98.2 F 97 20 156/85 99
09/29/24 07:00 09/29/24 07:00 09/29/24 07:00 09/29/24 07:00 09/29/24 07:00
I&O
09/28/24 09/29/24 09/30/24
06:59 06:59 06:59
Intake Total 480 / 480 120 / 120
Balance 480 / 480 120 / 120
Review of Systems
-
All other systems: Reviewed and negative
Physical Exam
-
General: Appears Chronically Ill
HEENT: Normocephalic; Negative Atraumatic (bruising on left eyebrow, periorbital, left neck) or Oxygen
Respiratory: Clear to Auscultation; Negative Wheezes or Rhonchi
Cardiac: Regular Rhythm and S1/S2; Negative Murmur
GI: Soft, Nontender, Nondistended and Normal Bowel Sounds
Musculoskeletal: No Clubbing, No Cyanosis and No Edema
Neuro: Awake; Negative Nonfocal/Grossly Intact (left sided weakness)
[2024-09-29] MEDS: LIPITOR 40 MG PO (18:35)
[2024-09-29] MEDS: FLOMAX 0.4 MG PO (18:35)
--- NOTE | 2024-09-29 20:51 | W.PN.NEURO.1 ---
Today's Communication / Plan
-
Start Sinemet 25/100 TID
Neuro Assessment/Plan
Assessment
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
Brain MRI Images reviewed with patient and his family.
with his advanced age, underlying parkinson's, the diseased brain does not recover well; any meaningful improvement is unlikely
Plan
ASA 81, Lipitor 40
21 days of plavix
spoke with patient and his daughter Yelitza, decided to start Sinemet 25/100 TID may help his right side work a little better
Subjective/Objective
Subjective Data
Date of Service: September 29, 2024
minimal movement on his left side
Objective Data
Vital Signs
Temp Pulse Resp BP Pulse Ox
36.8 C 92 20 154/79 95
09/29/24 07:00 09/29/24 15:00 09/29/24 15:00 09/29/24 15:00 09/29/24 15:00
Lab Results
09/29/24 06:12
09/29/24 06:12
PT 14.6 Sec (11.4-14.6) 09/25/24 18:42
INR 1.08 09/25/24 18:42
APTT 28.5 Sec (23.4-35.0) 09/25/24 18:42
Sodium 135 mmol/L (135-145) 09/29/24 06:12
Potassium 4.0 mmol/L (3.5-5.1) 09/29/24 06:12
BUN 17 mg/dl (9-20) 09/29/24 06:12
Glucose 115 mg/dl (70-99) H 09/29/24 06:12
Calcium 8.8 mg/dl (8.4-10.2) 09/29/24 06:12
LDL Cholesterol, Calc 47 mg/dl 09/26/24 05:12
Patient Allergies
celecoxib [From Celebrex] Allergy (Verified 09/25/24 15:35)
Unknown
Penicillins Allergy (Verified 09/25/24 15:35)
Hives
Sulfa (Sulfonamide Antibiotics) Allergy (Verified 09/25/24 15:35)
Hives
tramadol Allergy (Verified 09/25/24 15:35)
Unknown
Physical Exam
-
AAOx3, speech clear
dense left UMN facial droop
dense left flacid hemiparesis 1-2/5 minimal movement
sensation intact to touch
resting tremor, bradykinesia
[2024-09-29 23:30] VITALS: BP 154/72
--- NOTE | 2024-09-30 04:41 | PTCARENOTE ---
Grinder [employer] walked into patient's room and he had his pillow on lightly resting on his face at approx 2300. Removed pillow and attempted to reposition it behind his head. Patient stated that he wanted to kill himself and that he doesn't want to live
anymore. He reports feeling this way since yesterday. Pillows removed from bed. Frequent visual monitoring of patient. Later in shift, patient asked for pillows. Advised that he cannot have for safety reasons. Provided sips of juice and water PRN as
requested by patient.
[2024-09-30 07:00] VITALS: BP 149/85
[2024-09-30] MEDS: MAGNESIUM OXIDE 250 MG PO ×2 (08:56→20:25)
[2024-09-30] MEDS: ZESTRIL 2.5 MG PO (08:56)
[2024-09-30] MEDS: SINEMET 25-100 1 TABLET PO ×3 (08:57→16:15)
[2024-09-30] MEDS: PLAVIX 75 MG PO (08:57)
[2024-09-30] MEDS: WELLBUTRIN XL (24 hour extended release) 150 MG PO (08:57)
[2024-09-30] MEDS: LEXAPRO 10 MG PO (08:57)
[2024-09-30] MEDS: LOW STRENGTH ASPIRIN 81 MG PO (08:57)
[2024-09-30] MEDS: PROTONIX 40 MG PO (08:57)
--- NOTE | 2024-09-30 12:34 | CM ---
proposal manager writer reviewed patient's chart and sent referrals to [facility], per daughters the are agreeable to [facility] or [place], per admissions at [facility] they do not feel patient is able to tolerate
3-4 hours of therapy per day, and they are concerned that patient will need care home placement, alternative options discussed with patient's daughter Yelitza and she has selected [facility] and [facility] [place], referrals sent in [employer] and
[facility] has denied patient as they are out of network with patient's insurance.
Plan; Skilled placement mental health case manager will reach out to patient's daughters for more skilled options.
[2024-09-30 15:00] VITALS: BP 120/65
--- NOTE | 2024-09-30 15:58 | W.PN.HOSP.TC ---
Today's Communication/Plan
-
Physical therapy.
Physiatry evaluation.
Discharge planning
Assessment / Plan
Assessment / Plan
Impression:
Presentation with fall of wheelchair.
Acute CVA, right thalamus/posterior limb internal capsule infarct
Left hemiparesis.
Status post fall with left periorbital hematoma
Right 4th and fifth toe nondisplaced fractures of proximal phalanges
Other conditions
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
Essential hypertension
Chronic anemia.
Chronic recurrent hyponatremia
Dyslipidemia.
GERD
BPH.
Urinary incontinence.
Depression/anxiety
Plan:
Right thalamus/posterior limb internal capsule 13 mm acute infarct
Neurologic sequela with persistent left hemiparesis, otherwise with no cortical symptoms such as vision changes, neglect, aphasia. Dysphagia likely pre-existing with Parkinson's disease.
Was not a candidate for lytic treatment given significant periorbital trauma/hematoma upon presentation
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
ECG and telemetry with no evidence of arrhythmia
Echocardiogram with preserved biventricular function and no cardioembolic source
Given underlying Parkinson's disease, overall performance status, prognosis for neurologic recovery remains guarded
Start DAPT with aspirin and Plavix for 21 days. PPI
LDL 47. Continue statin
Physical therapy/physiatry assessment
Speech and swallow evaluation, diet has been advanced with aspiration precautions
Cervical spine DJD, multilevel.
Imaging including MRI reviewed with neurosurgery. No evidence of cord compression. His current neurologic findings related to acute CVA. No surgical intervention required.
Probable Parkinson's disease with pending outpatient evaluation.
Not on any related medications prior to admission.
Initiated on Sinemet over this admission.
Essential hypertension.
Goal normotension.
Continue preadmission regimen including lisinopril.
Monitor blood pressure trend.
BPH with history of incontinence per
Bladder scan for retention.
Continue Flomax
Depression/anxiety
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
Full code.
Mechanical DVT prophylaxis
Anticipated Discharge: 24 - 48 hours
Subjective/Interval History
-
Date of Service: September 30, 2024
Objective Data
-
Vital Signs:
Vital Signs
Temp Pulse Resp BP Pulse Ox
97.6 F 72 18 120/65 97
09/30/24 15:00 09/30/24 15:00 09/30/24 15:00 09/30/24 15:00 09/30/24 15:00
I&O
09/29/24 09/30/24 10/01/24
06:59 06:59 06:59
Intake Total 120 / 120 240 / 240
Balance 120 / 120 240 / 240
Physical Exam
-
General: Appears Chronically Ill
HEENT: Normocephalic; Negative Atraumatic (bruising on left eyebrow, periorbital, left neck) or Oxygen
Respiratory: Clear to Auscultation; Negative Wheezes or Rhonchi
Cardiac: Regular Rhythm and S1/S2; Negative Murmur
GI: Soft, Nontender, Nondistended and Normal Bowel Sounds
Musculoskeletal: No Clubbing, No Cyanosis and No Edema
Neuro: Awake; Negative Nonfocal/Grossly Intact (left sided weakness)
[2024-09-30] MEDS: LIPITOR 40 MG PO (17:16)
[2024-09-30] MEDS: FLOMAX 0.4 MG PO (17:16)
[2024-09-30 23:20] VITALS: BP 102/60
[2024-10-01 07:00] VITALS: BP 158/80
[2024-10-01] MEDS: SINEMET 25-100 1 TABLET PO ×3 (08:24→18:20)
[2024-10-01] MEDS: LEXAPRO 10 MG PO (08:24)
[2024-10-01] MEDS: ZESTRIL 2.5 MG PO (08:24)
[2024-10-01] MEDS: MAGNESIUM OXIDE 250 MG PO ×2 (08:24→20:50)
[2024-10-01] MEDS: PLAVIX 75 MG PO (08:25)
[2024-10-01] MEDS: WELLBUTRIN XL (24 hour extended release) 150 MG PO (08:25)
[2024-10-01] MEDS: PROTONIX 40 MG PO (08:25)
[2024-10-01] MEDS: LOW STRENGTH ASPIRIN 81 MG PO (08:25)
--- NOTE | 2024-10-01 11:37 | CM ---
Patient has been denied at [facility] and [facility] as they do not accept patient's insurance, options reviewed with patient's daughters and they have selected [facility], [facility] and [facility], referrals
sent through [facility].
Plan; Skilled placement.
[2024-10-01 12:15] VITALS: BP 95/59; PULSE 78; O2SAT 97
[2024-10-01 15:00] VITALS: BP 120/62
--- NOTE | 2024-10-01 16:42 | W.PN.HOSP.TC ---
Today's Communication/Plan
-
Physical therapy.
Supportive care
[facility] to [facility] pending bed availability
Assessment / Plan
Assessment / Plan
Impression:
Presentation with fall of wheelchair.
Acute CVA, right thalamus/posterior limb internal capsule infarct
Left hemiparesis.
Status post fall with left periorbital hematoma
Right 4th and fifth toe nondisplaced fractures of proximal phalanges
Other conditions
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
Essential hypertension
Chronic anemia.
Chronic recurrent hyponatremia
Dyslipidemia.
GERD
BPH.
Urinary incontinence.
Depression/anxiety
Plan:
Right thalamus/posterior limb internal capsule 13 mm acute infarct
Neurologic sequela with persistent left hemiparesis, otherwise with no cortical symptoms such as vision changes, neglect, aphasia. Dysphagia likely pre-existing with Parkinson's disease.
Was not a candidate for lytic treatment given significant periorbital trauma/hematoma upon presentation
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
ECG and telemetry with no evidence of arrhythmia
Echocardiogram with preserved biventricular function and no cardioembolic source
Given underlying Parkinson's disease, overall performance status, prognosis for neurologic recovery remains guarded
Start DAPT with aspirin and Plavix for 21 days. PPI
LDL 47. Continue statin
Physical therapy/physiatry assessment
Speech and swallow evaluation, diet has been advanced with aspiration precautions
Cervical spine DJD, multilevel.
Imaging including MRI reviewed with neurosurgery. No evidence of cord compression. His current neurologic findings related to acute CVA. No surgical intervention required.
Probable Parkinson's disease with pending outpatient evaluation.
Not on any related medications prior to admission.
Initiated on Sinemet over this admission.
Essential hypertension.
Goal normotension.
Continue preadmission regimen including lisinopril.
Monitor blood pressure trend.
BPH with history of incontinence per
Bladder scan for retention.
Continue Flomax
Depression/anxiety
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
Full code.
Mechanical DVT prophylaxis
Anticipated Discharge: 24 - 48 hours
Subjective/Interval History
-
Date of Service: October 01, 2024
Objective Data
-
Vital Signs:
Vital Signs
Temp Pulse Resp BP Pulse Ox
98.4 F 68 18 120/62 97
10/01/24 15:00 10/01/24 15:00 10/01/24 15:00 10/01/24 15:00 10/01/24 15:00
I&O
09/30/24 10/01/24 10/02/24
06:59 06:59 06:59
Intake Total 900 / 900
Balance 900 / 900
Physical Exam
-
General: Appears Chronically Ill
HEENT: Normocephalic; Negative Atraumatic (bruising on left eyebrow, periorbital, left neck) or Oxygen
Respiratory: Clear to Auscultation; Negative Wheezes or Rhonchi
Cardiac: Regular Rhythm and S1/S2; Negative Murmur
GI: Soft, Nontender, Nondistended and Normal Bowel Sounds
Musculoskeletal: No Clubbing, No Cyanosis and No Edema
Neuro: Awake; Negative Nonfocal/Grossly Intact (left sided weakness)
[2024-10-01] MEDS: FLOMAX 0.4 MG PO (18:20)
[2024-10-01] MEDS: LIPITOR 40 MG PO (18:20)
[2024-10-01 23:25] VITALS: BP 103/60
--- NOTE | 2024-10-02 04:23 | DOWNTIME ---
There was a [employer]ician Downtime on 10/02/2024 from 0100 to 10/03/2023 at 0420 . Downtime documentation of patient's care, including medication administrations, has been reconciled in the electronic record per guidelines. Refer to the
patient's paper chart under the miscellaneous tab to see printed paper medication records and downtime forms.
[2024-10-02 07:00] VITALS: BP 155/73
--- NOTE | 2024-10-02 08:45 | CON.MD ---
Documented by User: Kat Pacheco PA-C 10/02/24 09:35
Consultation - Medical
-
Referring Provider:�Honorio Anaya
Chief Complaint:�CVA
�
History of Present Illness:�89-year-old male with PMH of (Parkinsonism (tremors and ambulatory dysfunction), hypertension and GERD) presented to [facility] ED for evaluation status post fall at [facility]. Patient states that he was leaning
forward to get a pair of shoes when he lost his balance and fell from his wheelchair. Found to have left hemiparesis, right fourth and fifth nondisplaced fracture proximal phalanges, left periorbital hematoma. MRI of the brain positive for acute
infarct at the right thalamus/posterior limb internal capsule. Patient complains of L eye discomfort and neck pain since the fall.He takes baby ASA daily
Per neuro-Brain MRI Images reviewed with patient and his family.
with his advanced age, underlying Parkinson's, the diseased brain does not recover well; any meaningful improvement is unlikely
Cervical MRI- 09/26/2024
No occult fracture. No anterior or posterior listhesis.
No intrinsic cervical cord signal alteration identified, given limitations from motion degradation.
Degenerative changes as described.
�
Past Medical History:�Hypertension, GERD, tremors and ambulatory dysfunction, anemia, hyponatremia chronic, dyslipidemia, BPH, depression, left rotator cuff tear, parkinsonism,
Procedure History:�Bilateral hip replacement, left hip revision
Family History:�Noncontributory
�
Social History:�
Functional Level Premorbidly:�Assisted living, [facility], wheelchair level
Functional Level Currently:�Self propels in wheelchair with bilateral leg, receiving PT at facility, ambulated 40 feet with rolling walker. 2 falls in the last 3 months. At - bed mobility�max assist, ADLs�dependent, patient able to sit on edge of
bed for 10 minutes at times with supervision and with mod assist. Tends to lean to either side particular to the left. Patient unable to complete BCAT due to fatigue
�
Tobacco:�Denies�
Alcohol:�Denies�
Drug use:�Denies�
�
Lives with:�[facility] [place]
24-hour assistance available:�
Number of floors:�1
# steps to enter:�
# steps to second floor:0
Potential First floor set up:�Yes
Driving:�No
Occupation:�Retired
�
�
Allergies:�
Allergy/AdvReac Type Severity Reaction Status Date / Time
celecoxib [From Celebrex] Allergy Unknown Verified 09/25/24 15:35
Penicillins Allergy Hives Verified 09/25/24 15:35
Sulfa (Sulfonamide Allergy Hives Verified 09/25/24 15:35
Antibiotics)
tramadol Allergy Unknown Verified 09/25/24 15:35
�
Review of Systems:�
Constitutional: (x) Normal _
Eye: (x) Normal _
Ear/Nose/Throat: (x) Normal _
Respiratory: (x) Normal _
Cardiovascular: (x) abNormal _hypertension,
Gastrointestinal: (x) Normal _
Genitourinary: (x) abNormal _BPH, urinary incontinence, +ESBL-2019
Musculoskeletal: (x) abNormal _neck, non ambulatory-wheelchair use at home
Integumentary: (x) Normal _
Neurologic: (x) abNormal _CVA, dysphagia, tremors, parkinsonism, left hemiparesis/flaccidity
Psychiatric: (x) abNormal _depression
Endocrine: (x) Normal _
Hematologic/Lymphatic: (x) Normal _
Allergic/Immunologic: (x) Normal _
�
Medications:�
Active Current Visit Medication List
Category Date Time Status
Acetaminophen [Tylenol] Med 09/26/24 00:18 Active
650 mg PO Q4HPRN PRN
Aspirin Chewable [Low Strength Aspirin] Med 09/26/24 08:00 Active
81 mg PO DAILY
Atorvastatin [Lipitor] Med 09/26/24 18:00 Active
40 mg PO QPM
Bupropion(24Hr)Extended Releas [WELLBUTRIN XL (24 hour Med 09/26/24 08:00 Active
extended release)]
150 mg PO DAILY
Carbidopa/Levodopa [Sinemet 25-100] Med 09/30/24 07:30 Active
1 tablet PO AC
Clopidogrel Bisulfate [Plavix] Med 09/27/24 15:00 Active
75 mg PO DAILY
Docusate W/Senna [Senokot-S] Med 09/26/24 00:18 Active
1 tablet PO BIDPRN PRN
Escitalopram Oxalate [Lexapro] Med 09/26/24 08:00 Active
10 mg PO DAILY
Flush (0.9% Sodium Chloride) [Flush (Nss)] Med 09/25/24 23:00 Active
See Dose Instructions IV PER PROTOCOL
Lisinopril [Zestril] Med 09/26/24 08:00 Active
2.5 mg PO DAILY
Magnesium Oxide Med 09/26/24 08:00 Active
250 mg PO BID
Pantoprazole [Protonix] Med 09/26/24 08:00 Active
40 mg PO DAILY
Polyethylene Glycol Powder [Miralax] Med 09/26/24 00:18 Active
17 grams PO DAILYPRN PRN
Tamsulosin [Flomax] Med 09/26/24 18:00 Active
0.4 mg PO QPM
�
Vitals:�
Temp Pulse Resp BP Pulse Ox
97.9 F 69 18 103/60 97
10/01/24 23:25 10/01/24 23:25 10/01/24 23:25 10/01/24 23:25 10/02/24 00:05
Height 5 ft 11 in
Actual Weight 80.314 kg
Body Mass Index (BMI) 24.7
�
Physical Exam:�
General Appearance/Observation: Well-developed, well-nourished individual in no apparent distress.� Resting tremors
Pain/Comfort Assessment: neck
Mood/Affect: Appropriate, flat affect, sleepy�
�
Integumentary/Operative Site:�
�� Pressure Ulcer Evaluation: absent over heels.�
��
�� Other Type of Wound: bruises-face, legs, arm, hematoma - left periorbital, face,
��
�
Eyes: Conjunctiva/Lids: subconjunctival hemorrhage��� Pupils: pupils-NT- mostly kept eyes closed
Ears/Nose/Throat: oral mucosa moist,� throat clear.������������ Lips/Teeth/Gums: normal�
Neck: No muscle spasm or tenderness�
Cardiovascular: Heart: regular, no murmur�
Respiratory: Respiratory Effort/Chest Expansion: normal������� Auscultation: Clear to auscultation bilaterally�
Gastrointestinal: abdomen not tender, no distension, normal abdominal bowel sounds
Genitourinary: No Tamayo�
Extremities:�Edema: None�Cyanosis: None�Trophic�changes: None
�
Neurology Exam:
Orientation: Alert, Oriented to self, Time- year, said September or October, no date, Place�-DH
Memory: seems intact for immediate medical concerns
Comprehension: Slow processing, needing cueing
Two step command: Impaired
Naming: intact
Cranial Nerves:
�� CNII:�Pupillary light reflex: Intact����Visual Field: impaired
�� CN III, IV, : Extraocular muscles: Intact�
�� CN V:�Facial Sensation�at�Forehead: Intact,�Maxilla: Intact,�Mandible: Intact
�� CN VII:�Facial movement: Weakness left side
�� CN VIII:�Hearing: Normal
�� CN IX/X:�Speech & swallow: low volume, dysarthria-able to understand most words�Position of Uvula: Midline
�� CN XI:�Shoulder shrug: flaccid left side
�� CN XII:�Tongue protrusion: Deviated to left
Sensory:
�� Light touch: Intact in bilateral upper and lower extremities
��
�
Reflexes:
�� Biceps: Absent bilaterally
�� Brachioradialis: Absent bilaterally
�� Triceps: Absent bilaterally
�� Patellar: absent bilaterally
�� Achilles: 2+ bilaterally
�� Babinski: Down going right, no response left
� Abi: Negative bilaterally�
Cerebellar: Dysmetria/Ataxia: Right side intact, unable to test left side flaccid
Musculoskeletal:
Motor: (Manual muscle scale 0-5)�
Muscle SA EF WE EE FF FA HF KE DF EHL PF
Right� - 4 4 4 4 - 4 4 4 3 4-
Left 0 0 0 0 0 0 0 0 0 0 0
�
Tone: Normal on right side, increased tone on the LUE, more so on LLE, ankle/foot - great toe curled upward
Range of Motion:rigid on the left side more so in the LLE than LUE limited rom of right shoulder
�
Lab Results:
Labs
WBC 4.4 10^3/uL (4.8-10.8) L 09/29/24 06:12
RBC 3.29 10^6/uL (4.70-6.10) L 09/29/24 06:12
Hgb 10.8 g/dL (13.0-18.0) L 09/29/24 06:12
Hct 30.2 % (39.0-52.0) L 09/29/24 06:12
MCV 91.8 fL (80.0-94.0) 09/29/24 06:12
MCH 32.8 pg (27.0-31.0) H 09/29/24 06:12
MCHC 35.8 g/dL (33.0-37.0) 09/29/24 06:12
RDW 12.9 % (11.5-14.5) 09/29/24 06:12
Plt Count 137 10^3/uL (130-400) 09/29/24 06:12
MPV 11.2 fL (7.4-10.4) H 09/29/24 06:12
Abs Immat Gran (auto) 0.1 10^3/uL (0-0.05) H 09/25/24 18:42
Absolute Neuts (auto) 6.6 10^3/uL (1.4-6.5) H 09/25/24 18:42
Absolute Lymphs (auto) 0.9 10^3/uL (1.2-3.4) L 09/25/24 18:42
Absolute Monos (auto) 0.4 10^3/uL (0.1-0.6) 09/25/24 18:42
Absolute Eos (auto) 0.0 10^3/uL (0-0.7) 09/25/24 18:42
Absolute Basos (auto) 0.0 10^3/uL (0-0.2) 09/25/24 18:42
Immature Gran % 0.6 % (0-0.5) H 09/25/24 18:42
Neutrophils % 82.5 % (42.2-75.2) H 09/25/24 18:42
Lymphocytes % 11.2 % (20.5-51.1) L 09/25/24 18:42
Monocytes % 5.4 % (1.7-9.3) 09/25/24 18:42
Eosinophils % 0.2 % (0-6) 09/25/24 18:
Basophils % 0.1 % (0-2) 09/25/24 18:42
Nucleated RBC % 0 % (-) 09/25/24 18:42
PT 14.6 Sec (11.4-14.6) 09/25/24 18:42
INR 1.08 09/25/24 18:42
APTT 28.5 Sec (23.4-35.0) 09/25/24 18:42
Sodium 135 mmol/L (135-145) 09/29/24 06:12
Potassium 4.0 mmol/L (3.5-5.1) 09/29/24 06:12
Chloride 101 mmol/L (98-107) 09/29/24 06:12
Carbon Dioxide 27 mmol/L (22-30) 09/29/24 06:12
BUN 17 mg/dl (9-20) 09/29/24 06:12
Creatinine 0.6 mg/dL (0.7-1.3) L 09/29/24 06:12
Estimated Creat Clear 92 ml/min 09/29/24 06:12
eGFR > 60.00 09/29/24 06:12
Glucose 115 mg/dl (70-99) H 09/29/24 06:12
Calcium 8.8 mg/dl (8.4-10.2) 09/29/24 06:12
Magnesium 2.0 mg/dl (1.6-2.3) 09/29/24 06:12
Total Bilirubin 0.9 mg/dl (0.2-1.3) 09/25/24 18:42
AST 17 U/L (17-59) 09/25/24 18:42
ALT 11 U/L (0-50) 09/25/24 18:42
Alkaline Phosphatase 95 U/L (38-126) 09/25/24 18:42
Total Protein 6.2 g/dl (6.3-8.2) L 09/25/24 18:42
Albumin 3.6 g/dl (3.5-5.0) 09/25/24 18:42
Triglycerides 47 mg/dl (10-149) 09/26/24 05:12
Total Cholesterol 90 mg/dl (50-199) 09/26/24 05:12
LDL Cholesterol, Calc 47 mg/dl 09/26/24 05:12
VLDL Cholesterol, Calc 9 mg/dl (0-30) 09/26/24 05:12
HDL Cholesterol 34 mg/dl 09/26/24 05:12
POC Glucose 125 mg/dl (70-99) H 09/25/24 16:43
�
Diagnostic Results:�as per HPI�
MRI - Head 09/26/2024
eripheral right thalamus/posterior limb internal capsule 13 mm acute infarct.
Chronic microvascular white matter ischemic disease. Central pontine and inferior medial left globus pallidus small chronic lacunar infarcts.
Atrophy. No extra-axial collection. Left supraorbital/frontal scalp soft tissue swelling/hematoma.
Left shoulder xray-
1. Chronic insertional tendinosis of the left rotator cuff.
2. Moderate osteoarthritis of the left acromioclavicular joint.
3. Severe left-sided facet joint arthrosis at C3/C4 and C4/C5.
4. Severe calcific atherosclerotic plaque in the thoracic aorta and left carotid bifurcation.
NECK CTA:
1. Severe stenosis (greater than 70% diameter) in the proximal brachiocephalic artery.
2. Severe stenosis (greater than 70% diameter) in the proximal left subclavian artery.
3. Severe stenosis (greater than 70% diameter) in the proximal right ICA.
4. 50-70% diameter stenosis in the proximal left ICA.
5. Severe stenosis (greater than 70% diameter) in both proximal vertebral arteries.
6. 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
7. Severe left-sided facet joint arthrosis at C3/C4 and C4/C5 causing severe left neural foraminal narrowing at both levels.
8. Severe discogenic degenerative disease at C5/C6, C6/C7, and C7/T1.
9. Mild multilevel cervical spinal cord compression.
10. Mild multilevel anterolistheses in the cervical spine.
HEAD CTA:
1. Severe bilateral stenoses (greater than 70% diameter) in both intracranial vertebral arteries.
2. 50-70% diameter stenosis in the basilar artery.
3. 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
4. Severe calcific atherosclerotic plaque in both intracranial internal carotid arteries causing 50-70% diameter stenoses.
5. LARGE ACUTE SCALP SOFT TISSUE HEMATOMA superolateral to the left orbit and in the preseptal soft tissues overlying the left orbit.
6. Moderate white matter leukoaraiosis in both cerebral hemispheres.
7. Moderate diffuse cerebral and cerebellar volume loss.
Assessment: 89-year-old male with left hemiparesis, found to have right thalamus/posterior limb internal capsule infarct on MRI affecting ADL and ambulation. Patient with parkinsonism started on Sinemet . Outpatient evaluation to confirm Parkinson
disease
�
Plan�
PT/OT to increase independence with ADLs, improve balance, coordination, endurance, strength, mobility, community reintegration, decreased burden of care on others and family education.�
�
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 Patient was already on aspirin at home. neuro recommended aspirin and Plavix for 21 days (last dose /) followed by lifelong, statin, and blood pressure control (SBP less than 180 and
diastolic less than 100 to participate with therapy for ischemic stroke). Continue to monitor neurologic status.�
Left nondominant hemiparesis: High risk for falls and sliding out of chair/bed. Safety reinforced.� Recommend Multi-Podus boot to prevent DTI on left heel
- Avoid using affected arm to help lift or pull patient as this will cause trauma to the shoulder.
Spasticity- Left LLE more than LUE- Consider Baclofen 5mg tid
Left periorbital hematoma/right fourth and fifth toe nondisplaced fractures of proximal phalanges: Status post fall. Was not a candidate for lytic treatment given significant periorbital trauma/hematoma upon presentation
Dysphagia: speech evaluation, likely pre-existing with Parkinson's disease. aspiration precautions.� Currently on pur�e with mildly thick liquid
Dysarthria: speech evaluation�
Parkinsonism -persistent tremor, ambulatory dysfunction, cognitive, ADL. Started on trial of Sinemet 25/100 1 tab po ac. Neuro Outpatient evaluation. Recommend monitoring for orthostatic hypotension.
HTN: continue medications, monitor closely�
HLD: Statin�
Chronic recurrent hyponatremia: Monitor and replete
Chronic anemia: Monitor
Psych/anxiety, depression: Psychology consult.� Wellbutrin and Escitalopram, monitor mood, adjust medications as needed.�
Skin: monitor for pressure sores/rashes/lesions.�
Pain: acetaminophen as needed.�
Bowel: Colace and Senna, PRN bisacodyl.�
Bladder/incontinence/BPH: Time void, PVRs, PRN straight cath.� Continue Flomax
GI Prophylaxis: Pantoprazole�
DVT Prophylaxis: Mechanical . No anticoagulation because of trauma, bleed
Pulmonary: Incentive spirometry�
Safety: Continue to reinforce assistance with all transfers.�
Code Status:� Full code
Dispo�(date/plan/equipment needs): Home with family care.� Social history reviewed.�
�
Functional and Medical Goals:�Modified Independent with ADL�s, ambulation, transfers�
�
Discharge Destination:�Patient would benefit from SNF as was also recommended by therapy due to patient's endurance and inability to complete intense therapy requiring 3 hours a day
�
Summary of recommendations:
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 Secondary prophylaxis with aspirin and Plavix for 21 days, lifelong, statin, and blood pressure control (SBP less than 180 and diastolic less than 100 to participate with therapy for
ischemic stroke). Continue to monitor neurologic status.�
Left nondominant hemiparesis: High risk for falls and sliding out of chair/bed. Safety reinforced.� Recommend Multi-Podus boot to prevent DTI on left heel
- Avoid using affected arm to help lift or pull patient as this will cause trauma to the shoulder.
Spasticity- Left LLE more than LUE- Consider Baclofen 2.5mg -5mg tid as tolerated
Parkinsonism:Started on trial of Sinemet. Neuro Outpatient evaluation. Recommend monitoring for orthostatic hypotension.
Bowel: Colace and Senna, PRN bisacodyl.�
Bladder/incontinence/BPH: Time void, PVRs, PRN straight cath.� Continue Flomax
DVT Prophylaxis: Mechanical
Thank you for allowing me to care for your patient. Please contact me with any questions or concerns.

Documented by User: Robert Hale MD 10/02/24 12:21
Consultation - Medical
-
Referring Provider:�Honorio Anaya
Chief Complaint:�CVA
�
History of Present Illness:�89-year-old male with PMH of (Parkinsonism (tremors and ambulatory dysfunction), hypertension and GERD) presented to [place] [facility] ED for evaluation status post fall at [facility]. Patient states that he was leaning
forward to get a pair of shoes when he lost his balance and fell from his wheelchair. Found to have left hemiparesis, right fourth and fifth nondisplaced fracture proximal phalanges, left periorbital hematoma. MRI of the brain positive for acute
infarct at the right thalamus/posterior limb internal capsule. Patient complains of L eye discomfort and neck pain since the fall.He takes baby ASA daily
Per neuro-Brain MRI Images reviewed with patient and his family, with his advanced age, underlying Parkinson's, the diseased brain does not recover well; any meaningful improvement is unlikely.
Cervical MRI- 09/26/2024
No occult fracture. No anterior or posterior listhesis.
No intrinsic cervical cord signal alteration identified, given limitations from motion degradation.
Degenerative changes as described.
�
Past Medical History:�Hypertension, GERD, tremors and ambulatory dysfunction, anemia, hyponatremia chronic, dyslipidemia, BPH, depression, left rotator cuff tear, parkinsonism,
Procedure History:�Bilateral hip replacement, left hip revision
Family History:�Noncontributory
�
Social History:�
Functional Level Premorbidly:�Assisted living, [facility], wheelchair level
Functional Level Currently:�Self propels in wheelchair with bilateral leg, receiving PT at facility, ambulated 40 feet with rolling walker. 2 falls in the last 3 months. At - bed mobility�max assist, ADLs�dependent, patient able to sit on edge of
bed for 10 minutes at times with supervision and with mod assist. Tends to lean to either side particular to the left. Patient unable to complete BCAT due to fatigue
�
Tobacco:�Denies�
Alcohol:�Denies�
Drug use:�Denies�
�
Lives with:�Assisted living-[facility]
24-hour assistance available:�
Number of floors:�1
# steps to enter:�0
Potential First floor set up:�Yes
Driving:�No
Occupation:�Retired
�
�
Allergies:�
Allergy/AdvReac Type Severity Reaction Status Date / Time
celecoxib [From Celebrex] Allergy Unknown Verified 09/25/24 15:35
Penicillins Allergy Hives Verified 09/25/24 15:35
Sulfa (Sulfonamide Allergy Hives Verified 09/25/24 15:35
Antibiotics)
tramadol Allergy Unknown Verified 09/25/24 15:35
�
Review of Systems:�
Constitutional: (x) Normal _
Eye: (x) Normal _
Ear/Nose/Throat: (x) Normal _
Respiratory: (x) Normal _
Cardiovascular: (x) abNormal _hypertension,
Gastrointestinal: (x) Normal _
Genitourinary: (x) abNormal _BPH, urinary incontinence, +ESBL-2019
Musculoskeletal: (x) abNormal _neck, non ambulatory-wheelchair use at home
Integumentary: (x) Normal _
Neurologic: (x) abNormal _CVA, dysphagia, tremors, parkinsonism, left hemiparesis/flaccidity
Psychiatric: (x) abNormal _depression
Endocrine: (x) Normal _
Hematologic/Lymphatic: (x) Normal _
Allergic/Immunologic: (x) Normal _
�
Medications:�
Active Current Visit Medication List
Category Date Time Status
Acetaminophen [Tylenol] Med 09/26/24 00:18 Active
650 mg PO Q4HPRN PRN
Aspirin Chewable [Low Strength Aspirin] Med 09/26/24 08:00 Active
81 mg PO DAILY
Atorvastatin [Lipitor] Med 09/26/24 18:00 Active
40 mg PO QPM
Bupropion(24Hr)Extended Releas [WELLBUTRIN XL (24 hour Med 09/26/24 08:00 Active
extended release)]
150 mg PO DAILY
Carbidopa/Levodopa [Sinemet 25-100] Med 09/30/24 07:30 Active
1 tablet PO AC
Clopidogrel Bisulfate [Plavix] Med 09/27/24 15:00 Active
75 mg PO DAILY
Docusate W/Senna [Senokot-S] Med 09/26/24 00:18 Active
1 tablet PO BIDPRN PRN
Escitalopram Oxalate [Lexapro] Med 09/26/24 08:00 Active
10 mg PO DAILY
Flush (0.9% Sodium Chloride) [Flush (Nss)] Med 09/25/24 23:00 Active
See Dose Instructions IV PER PROTOCOL
Lisinopril [Zestril] Med 09/26/24 08:00 Active
2.5 mg PO DAILY
Magnesium Oxide Med 09/26/24 08:00 Active
250 mg PO BID
Pantoprazole [Protonix] Med 09/26/24 08:00 Active
40 mg PO DAILY
Polyethylene Glycol Powder [Miralax] Med 09/26/24 00:18 Active
17 grams PO DAILYPRN PRN
Tamsulosin [Flomax] Med 09/26/24 18:00 Active
0.4 mg PO QPM
�
Vitals:�
Temp Pulse Resp BP Pulse Ox
97.9 F 69 18 103/60 97
10/01/24 23:25 10/01/24 23:25 10/01/24 23:25 10/01/24 23:25 10/02/24 00:05
Height 5 ft 11 in
Actual Weight 80.314 kg
Body Mass Index (BMI) 24.7
�
Physical Exam:�
General Appearance/Observation: Well-developed, well-nourished male in no apparent distress.� Resting tremors
Pain/Comfort Assessment: neck
Mood/Affect: Appropriate, flat affect, sleepy�
�
Integumentary/Operative Site:�
�� Pressure Ulcer Evaluation: absent over heels.�
�� �� Other Type of Wound: bruises-face, legs, arm, hematoma - left periorbital, face,
��
�
Eyes: Conjunctiva/Lids: subconjunctival hemorrhage and periorbital ecchymosis with open lesions��� pupils: pupils-NT- mostly kept eyes closed
Ears/Nose/Throat: oral mucosa moist,� throat clear.������������ Lips/Teeth/Gums: normal�
Neck: No muscle spasm or tenderness�
Cardiovascular: Heart: regular, no murmur�
Respiratory: Respiratory Effort/Chest Expansion: normal������� Auscultation: Clear to auscultation bilaterally�
Gastrointestinal: abdomen not tender, no distension, normal abdominal bowel sounds
Genitourinary: No Tamayo�
Extremities:�Edema: None�Cyanosis: None�Trophic�changes: None
�
Neurology Exam:
Orientation: Alert, Oriented to self, Time- year, said September or October, no date, Place�-[facility]
Memory: seems intact for immediate medical concerns
Comprehension: Slow processing, needing cueing
Two step command: Impaired
Naming: intact
Cranial Nerves:
�� CNII:�Pupillary light reflex: Intact����Visual Field: impaired�inattention versus field cut
�� CN III, IV, : Extraocular muscles: Intact�
�� CN V:�Facial Sensation�at�Forehead: Intact,�Maxilla: Intact,�Mandible: Intact
�� CN VII:�Facial movement: Weakness left side
�� CN VIII:�Hearing: Normal
�� CN IX/X:�Speech & swallow: low volume, dysarthria-able to understand most words�Position of Uvula: Midline
�� CN XI:�Shoulder shrug: flaccid left side
�� CN XII:�Tongue protrusion: Deviated to left
Sensory:
�� Light touch: Intact in bilateral upper and lower extremities
��
�
Reflexes:
�� Biceps: Absent bilaterally
�� Brachioradialis: Absent bilaterally
�� Triceps: Absent bilaterally
�� Patellar: absent bilaterally
�� Achilles: 2+ bilaterally
�� Babinski: Down going right, no response left
� Abi: Negative bilaterally�
Cerebellar: Dysmetria/Ataxia: Right side intact, unable to test left side flaccid
Musculoskeletal:
Motor: (Manual muscle scale 0-5)�
Muscle SA EF WE EE FF FA HF KE DF EHL PF
Right� - 4 4 4 4 - 4 4 4 3 4-
Left 0 0 0 0 0 0 0 0 0 0 0
�
Tone: Normal on right side, increased tone on the LUE, more so on LLE, ankle/foot - great toe curled upward
Range of Motion:rigid on the left side more so in the LLE than LUE limited rom of right shoulder
�
Lab Results:
Labs
WBC 4.4 10^3/uL (4.8-10.8) L 09/29/24 06:12
RBC 3.29 10^6/uL (4.70-6.10) L 09/29/24 06:12
Hgb 10.8 g/dL (13.0-18.0) L 09/29/24 06:12
Hct 30.2 % (39.0-52.0) L 09/29/24 06:12
MCV 91.8 fL (80.0-94.0) 09/29/24 06:12
MCH 32.8 pg (27.0-31.0) H 09/29/24 06:12
MCHC 35.8 g/dL (33.0-37.0) 09/29/24 06:12
RDW 12.9 % (11.5-14.5) 09/29/24 06:12
Plt Count 137 10^3/uL (130-400) 09/29/24 06:12
MPV 11.2 fL (7.4-10.4) H 09/29/24 06:12
Abs Immat Gran (auto) 0.1 10^3/uL (0-0.05) H 09/25/24 18:42
Absolute Neuts (auto) 6.6 10^3/uL (1.4-6.5) H 09/25/24 18:42
Absolute Lymphs (auto) 0.9 10^3/uL (1.2-3.4) L 09/25/24 18:42
Absolute Monos (auto) 0.4 10^3/uL (0.1-0.6) 09/25/24 18:42
Absolute Eos (auto) 0.0 10^3/uL (0-0.7) 09/25/24 18:42
Absolute Basos (auto) 0.0 10^3/uL (0-0.2) 09/25/24 18:42
Immature Gran % 0.6 % (0-0.5) H 09/25/24 18:42
Neutrophils % 82.5 % (42.2-75.2) H 09/25/24 18:42
Lymphocytes % 11.2 % (20.5-51.1) L 09/25/24 18:42
Monocytes % 5.4 % (1.7-9.3) 09/25/24 18:42
Eosinophils % 0.2 % (0-6) 09/25/24 18:42
Basophils % 0.1 % (0-2) 09/25/24 18:42
Nucleated RBC % 0 % (-) 09/25/24 18:42
PT 14.6 Sec (11.4-14.6) 09/25/24 18:42
INR 1.08 09/25/24 18:42
APTT 28.5 Sec (23.4-35.0) 09/25/24 18:42
Sodium 135 mmol/L (135-145) 09/29/24 06:12
Potassium 4.0 mmol/L (3.5-5.1) 09/29/24 06:12
Chloride 101 mmol/L (98-107) 09/29/24 06:12
Carbon Dioxide 27 mmol/L (22-30) 09/29/24 06:12
BUN 17 mg/dl (9-20) 09/29/24 06:12
Creatinine 0.6 mg/dL (0.7-1.3) L 09/29/24 06:12
Estimated Creat Clear 92 ml/min 09/29/24 06:12
eGFR > 60.00 09/29/24 06:12
Glucose 115 mg/dl (70-99) H 09/29/24 06:12
Calcium 8.8 mg/dl (8.4-10.2) 09/29/24 06:12
Magnesium 2.0 mg/dl (1.6-2.3) 09/29/24 06:12
Total Bilirubin 0.9 mg/dl (0.2-1.3) 09/25/24 18:42
AST 17 U/L (17-59) 09/25/24 18:42
ALT 11 U/L (0-50) 09/25/24 18:42
Alkaline Phosphatase 95 U/L (38-126) 09/25/24 18:42
Total Protein 6.2 g/dl (6.3-8.2) L 09/25/24 18:42
Albumin 3.6 g/dl (3.5-5.0) 09/25/24 18:42
Triglycerides 47 mg/dl (10-149) 09/26/24 05:12
Total Cholesterol 90 mg/dl (50-199) 09/26/24 05:12
LDL Cholesterol, Calc 47 mg/dl 09/26/24 05:12
VLDL Cholesterol, Calc 9 mg/dl (0-30) 09/26/24 05:12
HDL Cholesterol 34 mg/dl 09/26/24 05:12
POC Glucose 125 mg/dl (70-99) H 09/25/24 16:43
�
Diagnostic Results:�as per HPI�
MRI - Head 09/26/2024
eripheral right thalamus/posterior limb internal capsule 13 mm acute infarct.
Chronic microvascular white matter ischemic disease. Central pontine and inferior medial left globus pallidus small chronic lacunar infarcts.
Atrophy. No extra-axial collection. Left supraorbital/frontal scalp soft tissue swelling/hematoma.
Left shoulder xray-
1. Chronic insertional tendinosis of the left rotator cuff.
2. Moderate osteoarthritis of the left acromioclavicular joint.
3. Severe left-sided facet joint arthrosis at C3/C4 and C4/C5.
4. Severe calcific atherosclerotic plaque in the thoracic aorta and left carotid bifurcation.
NECK CTA:
1. Severe stenosis (greater than 70% diameter) in the proximal brachiocephalic artery.
2. Severe stenosis (greater than 70% diameter) in the proximal left subclavian artery.
3. Severe stenosis (greater than 70% diameter) in the proximal right ICA.
4. 50-70% diameter stenosis in the proximal left ICA.
5. Severe stenosis (greater than 70% diameter) in both proximal vertebral arteries.
6. 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
7. Severe left-sided facet joint arthrosis at C3/C4 and C4/C5 causing severe left neural foraminal narrowing at both levels.
8. Severe discogenic degenerative disease at C5/C6, C6/C7, and C7/T1.
9. Mild multilevel cervical spinal cord compression.
10. Mild multilevel anterolistheses in the cervical spine.
HEAD CTA:
1. Severe bilateral stenoses (greater than 70% diameter) in both intracranial vertebral arteries.
2. 50-70% diameter stenosis in the basilar artery.
3. 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
4. Severe calcific atherosclerotic plaque in both intracranial internal carotid arteries causing 50-70% diameter stenoses.
5. LARGE ACUTE SCALP SOFT TISSUE HEMATOMA superolateral to the left orbit and in the preseptal soft tissues overlying the left orbit.
6. Moderate white matter leukoaraiosis in both cerebral hemispheres.
7. Moderate diffuse cerebral and cerebellar volume loss.
Assessment: 89-year-old male with left hemiparesis, found to have right thalamus/posterior limb internal capsule infarct on MRI affecting ADL and ambulation. Patient with parkinsonism started on Sinemet . Outpatient evaluation to confirm Parkinson
disease
�
Plan�
PT/OT to increase independence with ADLs, improve balance, coordination, endurance, strength, mobility, community reintegration, decreased burden of care on others and family education.�
�
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 Patient was already on aspirin at home. neuro recommended aspirin and Plavix for 21 days (last dose /) followed by lifelong, statin, and blood pressure control (SBP less than 180 and
diastolic less than 100 to participate with therapy for ischemic stroke). Continue to monitor neurologic status.�
Left nondominant hemiparesis: High risk for falls and sliding out of chair/bed. Safety reinforced.� Recommend Multi-Podus boot to prevent DTI on left heel
- Avoid using affected arm to help lift or pull patient as this will cause trauma to the shoulder.
Spasticity- Left LLE more than LUE- Consider Baclofen 2.5 mg at night and titrating upward to 3 times daily and higher doses as necessary.
Left periorbital hematoma/right fourth and fifth toe nondisplaced fractures of proximal phalanges: Status post fall. Was not a candidate for lytic treatment given significant periorbital trauma/hematoma upon presentation
Dysphagia: speech evaluation, likely pre-existing with Parkinson's disease. aspiration precautions.� Currently on pur�e with mildly thick liquid
Dysarthria: speech evaluation�
Parkinsonism -persistent tremor, ambulatory dysfunction, cognitive, ADL. Started on trial of Sinemet 25/100 1 tab po ac. Neuro Outpatient evaluation. Recommend monitoring for orthostatic hypotension.
HTN: continue medications, monitor closely�
HLD: Statin�
Chronic recurrent hyponatremia: Monitor and replete
Chronic anemia: Monitor
Psych/anxiety, depression: Psychology consult.� Wellbutrin and Escitalopram, monitor mood, adjust medications as needed.�
Skin: monitor for pressure sores/rashes/lesions.�
Pain: acetaminophen as needed.�
Bowel: Colace and Senna, PRN bisacodyl.�
Bladder/incontinence/BPH: Time void, PVRs, PRN straight cath.� Continue Flomax
GI Prophylaxis: Pantoprazole�
DVT Prophylaxis: Mechanical. Teds. Consider chemoprophylaxis with dense hemiparesis
Pulmonary: Incentive spirometry�
Safety: Continue to reinforce assistance with all transfers.�
Code Status:� Full code
Dispo�(date/plan/equipment needs): Home with family care.� Social history reviewed.�
Functional and Medical Goals:�Modified Independent with ADL�s, ambulation, transfers�
Discharge Destination:�Patient would benefit from SNF as was also recommended by therapy due to patient's endurance and inability to complete intense therapy requiring 3 hours a day
Attending Statement: Late entry
I saw and examined the patient 10/01/24. Reviewed care plan with patient, and physician grants assistant. I agree with the above subjective and physical exam, and plan as documented by FLY Pacheco with adjustments made as necessary. A total of 60
minutes were spent with the patient preparing for the evaluation, obtaining history, performing examination and evaluation, counseling, data review, case management, care coordination, psychiatric orderly, and EMR documentation.
�
Summary of recommendations:
Discharge Destination:�SNF
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 Secondary prophylaxis with aspirin and Plavix for 21 days, lifelong, statin, and blood pressure control (SBP less than 180 and diastolic less than 100 to participate with therapy for
ischemic stroke). Continue to monitor neurologic status.�
Left nondominant hemiparesis: High risk for falls and sliding out of chair/bed. Safety reinforced.� Recommend Multi-Podus boot to prevent DTI on left heel
- Avoid using affected arm to help lift or pull patient as this will cause trauma to the shoulder.
Spasticity- Left LLE more than LUE- Consider Baclofen 2.5 mg at night and titrating upward to 3 times daily and higher doses as necessary.
Parkinsonism:Started on trial of Sinemet. Neuro Outpatient evaluation. Recommend monitoring for orthostatic hypotension.
Bowel: Colace and Senna, PRN bisacodyl.�
Bladder/incontinence/BPH: Time void, PVRs, PRN straight cath.� Continue Flomax
DVT Prophylaxis: Mechanical. Teds. Consider chemoprophylaxis with dense hemiparesis
Thank you for allowing me to care for your patient. Please contact me with any questions or concerns.
[2024-10-02] MEDS: MAGNESIUM OXIDE 250 MG PO ×2 (09:31→20:32)
[2024-10-02] MEDS: SINEMET 25-100 1 TABLET PO ×3 (09:31→18:21)
[2024-10-02] MEDS: LOW STRENGTH ASPIRIN 81 MG PO (09:32)
[2024-10-02] MEDS: LEXAPRO 10 MG PO (09:32)
[2024-10-02] MEDS: ZESTRIL 2.5 MG PO (09:32)
[2024-10-02] MEDS: PLAVIX 75 MG PO (09:32)
[2024-10-02] MEDS: PROTONIX 40 MG PO (09:32)
[2024-10-02] MEDS: WELLBUTRIN XL (24 hour extended release) 150 MG PO (09:33)
--- NOTE | 2024-10-02 14:37 | W.PN.HOSP.TC ---
Today's Communication/Plan
-
Continue supportive care including physical therapy.
Tolerates DAPT.
Diet has been advanced with aspiration precautions per
Pending discharge to senior care facility.
Assessment / Plan
Assessment / Plan
Impression:
Presentation with fall of wheelchair.
Acute CVA, right thalamus/posterior limb internal capsule infarct
Left hemiparesis.
Status post fall with left periorbital hematoma
Right 4th and fifth toe nondisplaced fractures of proximal phalanges
Other conditions
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
Essential hypertension
Chronic anemia.
Chronic recurrent hyponatremia
Dyslipidemia.
GERD
BPH.
Urinary incontinence.
Depression/anxiety
Plan:
Right thalamus/posterior limb internal capsule 13 mm acute infarct
Neurologic sequela with persistent left hemiparesis, otherwise with no cortical symptoms such as vision changes, neglect, aphasia. Dysphagia likely pre-existing with Parkinson's disease.
Was not a candidate for lytic treatment given significant periorbital trauma/hematoma upon presentation
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
ECG and telemetry with no evidence of arrhythmia
Echocardiogram with preserved biventricular function and no cardioembolic source
Given underlying Parkinson's disease, overall performance status, prognosis for neurologic recovery remains guarded
Start DAPT with aspirin and Plavix for 21 days. PPI
LDL 47. Continue statin
Physical therapy/physiatry assessment
Speech and swallow evaluation, diet has been advanced with aspiration precautions
Cervical spine DJD, multilevel.
Imaging including MRI reviewed with neurosurgery. No evidence of cord compression. His current neurologic findings related to acute CVA. No surgical intervention required.
Parkinson's disease with pending outpatient evaluation.
Not on any related medications prior to admission.
Initiated on Sinemet over this admission.
Essential hypertension.
Goal normotension.
Continue preadmission regimen including lisinopril.
Monitor blood pressure trend.
BPH with history of incontinence per
Bladder scan for retention.
Continue Flomax
Depression/anxiety
On escitalopram/bupropion [employer]
Full code.
Mechanical DVT prophylaxis
Anticipated Discharge: Within 24 hours
Subjective/Interval History
-
Date of Service: October 02, 2024
Objective Data
-
Vital Signs:
Vital Signs
Temp Pulse Resp BP Pulse Ox
97.6 F 74 19 155/73 95
10/02/24 07:00 10/02/24 07:00 10/02/24 07:00 10/02/24 07:00 10/02/24 07:00
I&O
10/01/24 10/02/24 10/03/24
06:59 06:59 06:59
Intake Total 900 / 900 240 / 240
Balance 900 / 900 240 / 240
Physical Exam
-
General: Appears Chronically Ill
HEENT: Normocephalic; Negative Atraumatic (bruising on left eyebrow, periorbital, left neck) or Oxygen
Respiratory: Clear to Auscultation; Negative Wheezes or Rhonchi
Cardiac: Regular Rhythm and S1/S2; Negative Murmur
GI: Soft, Nontender, Nondistended and Normal Bowel Sounds
Musculoskeletal: No Clubbing, No Cyanosis and No Edema
Neuro: Awake; Negative Nonfocal/Grossly Intact (left sided weakness)
[2024-10-02 15:00] VITALS: BP 121/66
--- NOTE | 2024-10-02 15:03 | CM ---
Addendum entered by Joanna Egan 10/02/24 17:13:
Pending ref # [id number] with [facility] all clinicals faxed to [phone].
Original Note:
Patient has been accepted at [facility] aiting on Auth from insurance.
Plan: Skilled placement at [facility]. Needs Auth .
[2024-10-02] MEDS: TYLENOL 650 MG PO (18:21)
[2024-10-02] MEDS: LIPITOR 40 MG PO (18:21)
[2024-10-02] MEDS: FLOMAX 0.4 MG PO (18:21)
[2024-10-02 23:00] VITALS: BP 141/62
[2024-10-03 08:21] VITALS: BP 140/70
[2024-10-03] MEDS: MAGNESIUM OXIDE 250 MG PO (08:25)
[2024-10-03] MEDS: WELLBUTRIN XL (24 hour extended release) 150 MG PO (08:26)
[2024-10-03] MEDS: PROTONIX 40 MG PO (08:27)
[2024-10-03] MEDS: ZESTRIL 2.5 MG PO (08:27)
[2024-10-03] MEDS: SINEMET 25-100 1 TABLET PO ×2 (08:28→11:37)
[2024-10-03] MEDS: LEXAPRO 10 MG PO (08:28)
[2024-10-03] MEDS: PLAVIX 75 MG PO (08:29)
[2024-10-03] MEDS: LOW STRENGTH ASPIRIN 81 MG PO (08:29)
--- NOTE | 2024-10-03 10:54 | PTOTSP ---
Speech Therapy Evaluation:
Pt earned a score of 18/30 on the MOCA, indicative of mild cognitive impairment per parameters of this assessment. Of note, pt at the lower end of the cutoff score for mild (18-25). Pt demonstrated deficits in executive functioning, attention,
language, and delayed recall. Pt reported he does not feel as sharp since his stroke. Given mild cognitive impairment (borderline moderate), pt would benefit from ongoing ST services at acute care level and following d/c at next level of care. Pt in
verbal agreement.
--- NOTE | 2024-10-03 11:28 | W.DS.TRANS ---
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
-
Discharge Instructions:
Discharge Diagnosis/Procedures Impression:
Acute CVA, right thalamus/posterior limb
internal capsule infarct
Left hemiparesis.
Status post fall with left periorbital hematoma
Right 4th and fifth toe nondisplaced fractures
of proximal phalanges
Other conditions
Probable Parkinson disease (patient with
persistent tremor, ambulatory dysfunction,
cognitive dysfunction including ADL)
Essential hypertension
Chronic anemia.
Chronic recurrent hyponatremia
Dyslipidemia.
GERD
BPH.
Urinary incontinence.
Depression/anxiety
Diet Other diet
Additional Diets Pureed with mildly thick liquids
Instructions:
Stand-Alone Forms:
Changes to Home Medications: Yes
Discharge Medications:
DC Medications w/original date entered in [facility]
atorvastatin 40 mg tablet 40 mg PO QPM High Cholesterol 11/21/23
escitalopram oxalate 10 mg tablet 10 mg PO DAILY depression/anxiety 11/21/23
lisinopril 5 mg tablet 2.5 mg PO DAILY Blood Pressure 11/21/23
meclizine 25 mg tablet 25 mg PO Q8HPRN PRN vertigo 11/21/23
oxybutynin chloride 10 mg tablet,extended release 24 hr 10 mg PO DAILY Urinary Issue 11/21/23
pantoprazole 40 mg tablet,delayed release 40 mg PO DAILY Gastrointestinal Issue 11/21/23
tamsulosin 0.4 mg capsule 0.4 mg PO QPM Urinary Issue 11/21/23
acetaminophen 325 mg tablet 650 mg PO Q6HPRN PRN mild pain 09/25/24
aspirin 81 mg tablet,delayed release 81 mg PO DAILY Blood Clot Prevention/Tx 09/25/24
bupropion HCl 150 mg 24 hr tablet, extended release 150 mg PO DAILY Mental Health 09/25/24
magnesium oxide 200 mg PO BID Supplement 09/25/24
carbidopa 25 mg-levodopa 100 mg tablet 1 tab PO AC #90 tabs 10/02/24
clopidogrel 75 mg tablet 75 mg PO DAILY #15 tabs 10/02/24
polyethylene glycol 3350 17 gram oral powder packet 17 g PO DAILYPRN PRN constipation #30 ea 10/02/24
Home Medication Changes
Sinemet
DAPT
PPI
Pending Results: No
--- NOTE | 2024-10-03 11:54 | CM ---
pst manager reviewed patient's chart and Auth has been received from Sudhir at [facility], patient has been approved for 10/03-10/07, Ref # [id number].
Plan; Patient to transfer to [facility] today.
Report [id number]
[2024-10-03] MEDS: TYLENOL 650 MG PO (12:52)
[2024-10-03 14:49] VITALS: BP 112/60
== END 2024-10-03 16:13 | DRG 65 ==
LOC: 4 WEST ACU 00:15
PROVIDERS: Internal Medicine; Registered Nurse; ADMITTING PHYSICIAN Hospitalist; ATTENDING PHYSICIAN Internal Medicine; CONSULT PHYSICIAN Physical Medicine & Rehabilitation; CONSULT PHYSICIAN Psychiatry & Neurology Clinical Neurophysiology; EMERGENCY PHYSICIAN Emergency Medicine; FAMILY PHYSICIAN Family Medicine
PROC: 0HQ1XZZ Repair Face Skin, External Approach (ICD-10-PCS; 2024-09-25)
DX: I63.511 Cerebral infarction due to unspecified occlusion or stenosis of right middle cerebral artery (principal); E87.1 Hypo-osmolality and hyponatremia; G81.94 Hemiplegia, unspecified affecting left nondominant side; M50.00 Cervical disc disorder with myelopathy, unspecified cervical region; S01.81XA Laceration without foreign body of other part of head, initial encounter; G20.A1 Parkinson's disease without dyskinesia, without mention of fluctuations; I10 Essential (primary) hypertension; F32.A Depression, unspecified; N40.1 Benign prostatic hyperplasia with lower urinary tract symptoms; N39.498 Other specified urinary incontinence; W05.0XXA Fall from non-moving wheelchair, initial encounter; E78.00 Pure hypercholesterolemia, unspecified; K21.9 Gastro-esophageal reflux disease without esophagitis; D63.8 Anemia in other chronic diseases classified elsewhere; Z79.82 Long term (current) use of aspirin; F41.9 Anxiety disorder, unspecified; M48.00 Spinal stenosis, site unspecified; L71.9 Rosacea, unspecified; Z88.0 Allergy status to penicillin; Z88.2 Allergy status to sulfonamides; I25.10 Atherosclerotic heart disease of native coronary artery without angina pectoris; M47.819 Spondylosis without myelopathy or radiculopathy, site unspecified; M19.012 Primary osteoarthritis, left shoulder; S40.212A Abrasion of left shoulder, initial encounter; S80.212A Abrasion, left knee, initial encounter; Z96.643 Presence of artificial hip joint, bilateral; R29.810 Facial weakness
CPT/HCPCS: 12011; 70450; 70496; 70498; 70551; 72125; 72141; 73030; 73630; 74230; 80048; 80053; 80061; 82962; 83735; 85025; 85027; 85610; 85730; 87070; 90471; 90715; 92523; 92526; 92610; 92611; 93306; 97110; 97167; 97530; 97535; 99291; Q9950; Q9967

== ENCOUNTER 2025-01-14 21:40 | Inpatient (IN) | payer MEDICARE, SELFPAY ==
[2025-01-14] VITALS (10 sets, daily range): BP systolic 44–227; BP diastolic 22–200
--- NOTE | 2025-01-14 19:49 | ED.GENMED ---
History of Present Illness
General
Chief Complaint: Change in Mental Status
Source: patient and ambulance crew
Exam Limitations: none
Time Seen by Provider: 01/14/25 19:47
History of Present Illness
History of Present Illness:
See MDM
Past History
Past History
ED Past Medical History: CVA, GERD (Arthritis), HTN, Hypercholesterolemia and Other (Parkinson's disease)
Social History
Tobacco: Non-smoker
Alcohol: Daily
Personal:
Living: alone
Family History
Family History: Other ([place])
Phy Exam
Physical Exam
Physical Exam:
See MDM
Course
Orders/Labs/Results
Orders:
Orders
01/14/25 19:46
Electrocardiogram (*1) Urgent
Reason for Study: Fatigue / Weakness
01/14/25 19:47
EKG- Treatment ONCE
01/14/25 19:48
CT Head W/o Iv Contrast Urgent
Comment:
Reason For Exam: altered, recent stroke
0.9% Sodium Chloride 1000 ml [Nss] 1,000 ml IV BOLUS
CR Chest Portable - 1 View Urgent
Comment: recent stroke, possible aspiration
Reason For Exam: cough
Reason Study Needs to be Portable: Patient Unstable
01/14/25 19:59
Complete Blood Count/With Diff Urgent
Comprehensive Metabolic Panel Urgent
01/14/25 20:35
Urinalysis Reflex To Culture Urgent
Date Specimen was Collected: 01/14/25
Time Specimen was Collected: 19:59
Urine Microscopic Reflex Cult Urgent
Abnormal Lab Results
01/14/25 01/14/25
19:59 20:35
RBC 2.82 L 10^6/uL
(4.70-6.10)
Hgb 9.1 L g/dL
(13.0-18.0)
Hct 27.4 L %
(39.0-52.0)
MCV 97.2 H fL
(80.0-94.0)
MCH 32.3 H pg
(27.0-31.0)
Abs Immat Gran (auto) 0.1 H 10^3/uL
(0-0.05)
Immature Gran % 1.5 H %
(0-0.5)
Carbon Dioxide 15 L mmol/L
(22-30)
Glucose 147 H mg/dl
(70-99)
Total Protein 6.0 L g/dl
(6.3-8.2)
Albumin 3.1 L g/dl
(3.5-5.0)
Ur Occult Blood Reflex 2+ A
(Negative)
Urine RBC 16-20 A /HPF
(0-2)
Urine Bacteria (Reflex) Few A
(Negative)
Urine Albumin (Reflex) 1+ A
(Neg - Trace)
01/14/25 19:59
01/14/25 19:59
Vital Signs
Initial and Last Documented VS:
Initial Vital Signs
Temp Pulse Resp BP Pulse Ox
99.1 F 92 17 156/138 97
01/14/25 19:44 01/14/25 19:44 01/14/25 19:44 01/14/25 19:44 01/14/25 19:44
Last Documented Vital Signs
Temp Pulse Resp BP Pulse Ox
99.1 F 105 29 46/34 97
01/14/25 19:44 01/14/25 20:37 01/14/25 20:37 01/14/25 20:37 01/14/25 19:44
MDM/Problems Addressed
Differential Diagnosis Includes:
HPI and MDM Narrative:
89-year-old male presenting by EMS for episode of unresponsiveness. Per EMS, patient was found unresponsive in his chair. When they arrived, they realized that he was not responding to verbal or painful stimuli. EMS stated that patient did have a
recent stroke. They started IV fluids. On arrival, patient started to wake up and feel better. He had a gurgling cough and appeared to aspirate in front of medics. On my exam, patient is awake and alert. He has left hemiparesis which is
consistent with his recent stroke. Given the unresponsive episode, will obtain CT head. Given the coughing episode, will obtain chest x-ray. Will continue IV fluids
Physical exam
General: Weak and frail
HEENT: protecting airway. Dry mucous membranes
Neck: appears supple
CV: No evidence of cyanosis. Regular rate and rhythm
Resp: No accessory muscle use
Abd: Non-distended
Extremities: No deformities
Neuro: alert. Left hemiparesis
Psych: Normal affect
Skin: Intact
Problems Addressed including Acute and Chronic Conditions affecting care:
1. Unresponsive
Acuity: acute
Prognosis: stable
Details: Potentially in the setting of dehydration. Will obtain CT head and continue to monitor on telemetry
2. Dehydration
Acuity: acute
Prognosis: stable
Details: Will give IV fluid
3. Coughing episode
Acuity: acute
Prognosis: stable
Details: Will obtain chest x-ray
Updates
Chest x-ray clear. CT head negative. Blood work without significant abnormalities. Daughter at bedside agrees with comfort care at the moment. Will admit for IV fluids continued assessment
Differential Diagnosis (but not limited to): Stroke, seizure, aspiration, dehydration
Testing considered: Urinalysis
Drug therapy (if applicable): OTC meds, please see d/c instruction regarding Rx drugs
Amount and/or Complexity of Data Reviewed
Clinical info obtained from: Patient
External data reviewed: Recent stroke
Labs I independently reviewed (but not limited to): Baseline anemia
Radiology: The CT scan was personally and independently reviewed. In addition, official CT report reviewed.
X-ray independently reviewed: Chest x-ray clear
Pulse Ox: not hypoxic
EKG independently reviewed: Sinus rhythm, normal axis, no STEMI
Internet Sourcer: N/A
Critical Care: N/A
Risk of Complication:
Social Determinants of health: Good social support
Discussed with other providers: Hospitalist
Escalation of Care includes Admit/Obs: Given dehydration and hypotension, will admit for IV fluids
Occasional wrong word or 'sound a like' substitutions may have occurred due to the inherent limitations of voice recognition software. Read the chart carefully and recognize, using context, where substitutions have occurred.
*Pulse Oximetry
Patient hypoxic: no
*Critical Care Note
Total Time (30-74mins, 75-104mins- exclusive of procedures): Not Applicable
ED Attending Note
-
Portions of this chart may have been created with voice recognition software.� Occasional wrong word or��sound alike� substitutions may have occurred due to the inherent limitations of voice recognition software.
Discharge Plan
Departure
Patient Disposition: Admit
Date of Disposition: 01/14/25
Time of Disposition: 21:01
Admit to: Med/Surg
Presentation/result/management discussed w/ accepting MD/DO: Hospitalist
Discharge Problem:
Acute dehydration, Aspiration into airway
Prescriptions:
No Action
atorvastatin 40 mg Tablet
40 mg PO QPM
oxybutynin chloride 10 mg Tablet Extended Release 24hr
10 mg PO DAILY
tamsulosin 0.4 mg Capsule
0.4 mg PO QPM
meclizine 25 mg Tablet
25 mg PO Q8HPRN PRN (Reason: vertigo)
pantoprazole 40 mg Tablet,Delayed Release (Dr/Ec)
40 mg PO DAILY
lisinopril 5 mg Tablet
2.5 mg PO DAILY
escitalopram oxalate 10 mg Tablet
10 mg PO DAILY
acetaminophen 325 mg Tablet
650 mg PO Q6HPRN PRN (Reason: mild pain)
aspirin 81 mg Tablet,Delayed Release (Dr/Ec)
81 mg PO DAILY
bupropion HCl 150 mg Tablet Extended Release 24 Hr
150 mg PO DAILY
magnesium oxide 200 mg magnesium Tablet
200 mg PO BID
polyethylene glycol 3350 17 gram Powder In Packet
17 g PO DAILYPRN PRN (Reason: constipation) Qty: 30 0RF
clopidogrel 75 mg Tablet
75 mg PO DAILY Qty: 15 0RF
carbidopa-levodopa 25-100 mg Tablet
1 tab PO AC Qty: 90 0RF
Referrals:
Dave Pacheco MD [Family Provider, Family Practice]
Interventions
Interventions:
*Risk Screen - Suicide Last Done: 01/14/25 19:54
*General Assessment Last Done: 01/14/25 19:54
*Neglect/Abuse Screening Last Done: 01/14/25 19:54
*ED COVID-19 Vaccine History Last Done: 01/14/25 19:54
ED- Pulmonary Assessment Last Done: 01/14/25 20:44
ED- Neurological Assessment Last Done: 01/14/25 20:44
ED- Cardiac Assessment Last Done: 01/14/25 20:44
Discharge Date and Time
Print Language: FRISIAN
[2025-01-14 20:06] LABS: Hematocrit 27.4 % (39.0-52.0); Hemoglobin 9.1 g/dL (13.0-18.0); Mean Corp Hgb Conc. 33.2 g/dL (33.0-37.0); Mean Corpuscular Volume 97.2 fL (80.0-94.0); Nucleated Red Blood Cells % 0.3 % (-); Platelet Count 280 10^3/uL (130-400); Red Cell Dist. Width 14.5 % (11.5-14.5)
[2025-01-14 20:25] LABS: AST (SGOT) 37 U/L (17-59); Albumin 3.1 g/dl (3.5-5.0); Alkaline Phosphatase 123 U/L (38-126); Blood Urea Nitrogen 19 mg/dl (9-20); Calcium 8.8 mg/dl (8.4-10.2); Carbon Dioxide 15 mmol/L (22-30); Chloride 106 mmol/L (98-107); Glucose 147 mg/dl (70-99); Potassium 5.0 mmol/L (3.5-5.1); Sodium 135 mmol/L (135-145); Total Protein 6.0 g/dl (6.3-8.2); eGFR > 60.00
[2025-01-14] MEDS: NSS 1000 IV ×3 (20:41→23:33)
[2025-01-14 20:42] LABS: Urine Character Clear (Clear)
[2025-01-14 20:55] LABS: Urine Squamous Cell >30 /LPF (Few)
[2025-01-14 20:56] LABS: Urine Red Blood Cell 16-20 /HPF (0-2)
[2025-01-14 20:57] LABS: Urine White Cell 0-2 /HPF (0-5)
--- NOTE | 2025-01-14 21:35 | HPS.HSE ---
Family Physician
-
Family Physician: Dave Pacheco
Chief Complaint
-
Unresponsive
History of Present Illness
Patient is an 89y M with PMH significant for ASCVD / CVA, Parkinson's Disease, hypertension and chronic anemia who presents to ED from local [place] for evaluation of unresponsive episode. History obtained from patient, ED staff and family at the
bedside. Patient was in his usual recent state of health earlier today according to his daughter. He did PT this AM at his facility. He continues with dense L hemiparesis following CVA in September 2024.
This evening, staff found the patient to be unresponsive at the [place]. 911 was called and patient evaluated. He was reportedly noted to have witnessed aspiration episode and 'gurgling' per EMS. he was given IVFs and brought to the ED for further
evaluation.
In the ED, patient was markedly hypotensive with SBP in the 40s. He received IVFs with improvement in BP and mentation.
At the time of my exam patient is alert and responsive. He answers questions and follows commands.
Patient complains of discomfort in the L leg - which is apparently a chronic complaint since his prior CVA.
He complains of some chest pressure / heaviness sensation. He denies any SOB, abdominal pain, N/V, etc.
He is on a restricted diet (pureed / mechanical soft) and admits that his appetite / PO intake is poor.
Medical History
Past Medical History
Past Medical History: Reports Other
Additional Past Medical History:
ASCVD
CVA with Left Hemiparesis
Parkinson's Disease
Depression
Hypertension
BPH
Cervical DDD
Past Surgical History: Reports Other
Additional Past Surgical History:
b/l hip replacements
Social History
Tobacco: Non-smoker
Alcohol: Occasional
Drug: None
Living: Assisted Living
Family History
Family History: Not pertinent
Allergies / Home Medications
Allergies reflects when Allergies were last updated in [employer].
Home Medications with original date entered in [facility]
Allergy/Medication List:
Allergies
Allergy/AdvReac Type Severity Reaction Status Date / Time
celecoxib (From Celebrex) Allergy Unknown Verified 09/25/24 15:35
Penicillins Allergy Hives Verified 09/25/24 15:35
Sulfa (Sulfonamide Allergy Hives Verified 09/25/24 15:35
Antibiotics)
tramadol Allergy Unknown Verified 09/25/24 15:35
Home Medications
atorvastatin 40 mg tablet 40 mg PO QPM High Cholesterol 11/21/23
escitalopram oxalate 10 mg tablet 10 mg PO DAILY depression/anxiety 11/21/23
lisinopril 5 mg tablet 2.5 mg PO DAILY Blood Pressure 11/21/23
meclizine 25 mg tablet 25 mg PO Q8HPRN PRN vertigo 11/21/23
oxybutynin chloride 10 mg tablet,extended release 24 hr 10 mg PO DAILY Urinary Issue 11/21/23
pantoprazole 40 mg tablet,delayed release 40 mg PO DAILY Gastrointestinal Issue 11/21/23
tamsulosin 0.4 mg capsule 0.4 mg PO QPM Urinary Issue 11/21/23
acetaminophen 325 mg tablet 650 mg PO Q6HPRN PRN mild pain 09/25/24
bupropion HCl 150 mg 24 hr tablet, extended release 150 mg PO DAILY Mental Health 09/25/24
clopidogrel 75 mg tablet 75 mg PO DAILY #15 tabs 10/02/24
aspirin 81 mg chewable tablet 81 mg PO DAILY 01/14/25
carbidopa 25 mg-levodopa 100 mg tablet 1 tab PO TID@0800,1200,1700 01/14/25
magnesium 200 mg tablet 200 mg PO BID 01/14/25
magnesium hydroxide 400 mg/5 mL oral suspension (Milk of Magnesia) 30 ml PO HS PRN if no BM in 3 days 01/14/25
mirtazapine 15 mg tablet 15 mg PO QPM 01/14/25
ondansetron HCl 4 mg tablet 4 mg PO Q6H PRN nausea/vomiting 01/14/25
polyethylene glycol 3350 17 gram oral powder packet 17 g PO DAILY 01/14/25
zinc oxide-vitamin B5-vit E 11.3% topical cream 1 applic topical DAILY skin integrity protection 01/14/25
Review of Systems
-
History Source: Patient and Family
A 12 point ROS was completed and negative except as noted: Yes
Constitutional: Reports Fatigue
Respiratory: Reports Cough; Denies Trouble Breathing
Cardiac: Reports Chest Pain; Denies Palpitations
Abdomen/GI: Denies Abdominal Pain, Nausea, Vomiting or Diarrhea
: Denies Dysuria or Frequency
Musculoskeletal: Reports Muscle Pain and Edema
Neurological: Denies Headache
Physical Exam
Vital Signs
Vital Signs
Temp Pulse Resp BP Pulse Ox
99.1 F 97 23 75/59 97
01/14/25 19:44 01/14/25 21:30 01/14/25 21:30 01/14/25 21:30 01/14/25 19:44
Physical Exam
General: Other (89y M - chronically ill-appearing. Not in acute distress.)
HEENT: Other (Dry MM, Neck supple.)
Respiratory: Other (Coarse breath sounds at both bases. No wheezes.)
Cardiac: S1/S2, Regular Rhythm and Murmur (II/ JONAS)
GI: Soft, Non Tender, Non Distended and Normal Bowel Sounds
Musculoskeletal: No Clubbing, No Cyanosis and Other (2+ pitting edema of the LLE to the knee.)
Neuro: Awake, Alert and Other (L facial droop / L hemiparesis - no new focal deficits.)
Laboratory Results
-
01/14/25 19:59
01/14/25 19:59
Laboratory Results
Total Bilirubin 0.9 mg/dl (0.2-1.3) 01/14/25 19:59
AST 37 U/L (17-59) 01/14/25 19:59
Alkaline Phosphatase 123 U/L (38-126) 01/14/25 19:59
Impression/Plan
-
A/P: Patient is an 89y M with PMH significant for hypertension, ASCVD / prior CVA and L hemiparesis who presents to ED from [place] with unresponsive episode and hypotension.
Shock / Hypotension
Unresponsive Episode secondary to the above
- Admit for further evaluation and treatment.
- Patient / family are not interested in extensive evaluation, interventions, etc.
- Significant improvement in mental status / BP with IVFs and they would like to continue this.
- Follow for clinical changes overnight.
- Consider additional evaluation(s) in the AM if patient is amenable.
- Hold usual antihypertensive medications / sedating meds / etc.
- Follow for any new / recurrent symptoms.
Witnessed Aspiration
- Patient with choking / aspiration episode witnessed by EMS and 'gurgling' breath sounds on arrival here in the ED.
- CXR without evident infiltrate / opacity.
- ? aspiration pneumonia / pneumonitis.
- Cover with abx for now. Aspiration precautions. Speech eval.
LLE Edema / Discomfort
- Check Doppler for evidence of DVT given asymmetric edema / discomfort - though potentially due to CVA / hemiparesis.
- If positive for DVT, would entertain PE as possible etiology of unresponsive episode / hypotension - though patient / family would rather forego CTA chest for now.
- Supportive care / pain control.
ASCVD
Left Hemiparesis as Late Effect of CVA
Chronic Dysphagia as Late Effect of CVA
- Stable. No new focal neurologic deficits.
- Continue ASA daily.
- PT / OT / Speech evaluations.
- NPO for now - start most appropriate diet after Speech eval.
Parkinson's Disease
- Continue usual Sinemet dosing without changes.
Anemia of Chronic Disease
- Stable. Hgb is at / near known baseline.
DVT Prophylaxis: Lovenox
Code Status: DNR
[2025-01-14 22:00] LABS: ALT (SGPT) < 30 U/L (0-50)
[2025-01-14 22:23] LABS: Troponin I < 0.012 ng/ml
[2025-01-14] MEDS: OFIRMEV 100 IV (22:40)
[2025-01-14] MEDS: ROCEPHIN 1000 MG IV (23:34)
[2025-01-14] MEDS: STERILE WATER FOR INJECTION 10 ML IV (23:34)
[2025-01-15] VITALS (32 sets, daily range): BP systolic 50–93; BP diastolic 27–66; BMI 20.5
[2025-01-15] MEDS: FLAGYL 500 MG 100 IV (00:22)
--- NOTE | 2025-01-15 00:54 | W.PN.UPDATE ---
Update Note
Progress Note Update
~ midnight - Patient remains hypotensive after multiple fluid boluses. Called and spoke with patient's daughter, Yelitza Sommer, explained that patient's blood pressure remains low after fluids. Reviewed previous conversation regarding starting blood
pressure support medications. Explained current situation and need for blood pressure support medications. Patient's daughter, Yelitza, verbalized understanding and is agreeable to start medications as needed. Levophed ordered.
~ 2 am Patient remains hypotensive, maxed on Levophed for IMU at 8 mcg/min, additional fluid bolus being given. BP 81/51 MAP 61, HR 99, resp 24, 92%.
Called and spoke to patients' daughter, Yelitza, and updated on patient's status. Explained that patient would need to be upgraded to ICU level of care for increased blood pressure support if that was their wishes. Daughter, Yelitza, voiced that the
patient would just want to be comfortable. I suggested she talk with her sister, Zari Chandra, to review situation and decide on plan going forward. Yelitza to call back and let know if they want to proceed with comfort care at this time. Suggested
the family may want to come in at this time.
~2:12 Received call from patient's daughter, Zari Chandra, who was updated by sister. Zari asked for status of patient, explained at this time would need to be upgraded to ICU or made comfortable. Zari is also in agreement with making patient
comfortable at this time. She is contacting her siblings and will be coming to hospital. She said she is about 20 minutes away.
~ 3:15 Patient's daughter, Zari, at bedside. Pt c/o pain, ordered Tylenol IV, family not ready to give morphine at this time.
~6:15 am Pt very restless, complaining of pain. Discussed with daughter, Zari. She wants her dad to be comfortable and would like to start comfort care at this time. Reviewed that all medications other than comfort medications will be
discontinued, patient's daughter verbalized understanding. Orders placed.
[2025-01-15] MEDS: LEVOPHED 250 IV (00:59)
[2025-01-15] MEDS: NSS 500 IV (01:43)
[2025-01-15 01:45] LABS: Troponin I 0.025 ng/ml
--- NOTE | 2025-01-15 03:09 | PTCARENOTE ---
Received patient from ED via stretcher. Pt AAOx2, disoriented to place. Pt extremely lethargic and drowsy but arousable to stimulation. Significant L-sided deficits at baseline. NSR to ST on the monitor. SpO2 93% on room air. Pt severely hypotensive
despite fluid bolus' in ED. MIRELLA Downs notified and at the bedside. New orders for Levophed, see SEP. Pt up to 8mcg/min. MIRELLA Downs called daughters about current status and GOC. Daughter Zari at the bedside. Order for another 500ml fluid bolus
administered, see SEP. IVF cont. IV abx cont.
[2025-01-15] MEDS: OFIRMEV 100 IV (03:26)
[2025-01-15 05:29] LABS: Hematocrit 24.9 % (39.0-52.0); Hemoglobin 8.5 g/dL (13.0-18.0); Mean Corp Hgb Conc. 34.1 g/dL (33.0-37.0); Mean Corpuscular Volume 95.8 fL (80.0-94.0); Platelet Count 228 10^3/uL (130-400); Red Cell Dist. Width 14.1 % (11.5-14.5)
[2025-01-15 05:56] LABS: Blood Urea Nitrogen 25 mg/dl (9-20); Calcium 8.0 mg/dl (8.4-10.2); Carbon Dioxide 20 mmol/L (22-30); Chloride 109 mmol/L (98-107); Estimated Creatinine Clearance 47 ml/min; Glucose 107 mg/dl (70-99); HDL Cholesterol 27 mg/dl; LDL Cholesterol, Calculated 21 mg/dl; Potassium 4.0 mmol/L (3.5-5.1); Sodium 135 mmol/L (135-145); Very Low Density Lipoprotein 10 mg/dl (0-30); eGFR > 60.00
[2025-01-15 06:14] LABS: Troponin I 0.073 ng/ml
[2025-01-15] MEDS: MORPHINE SULFATE 1 MG IV (07:09)
--- NOTE | 2025-01-15 07:45 | W.PN.UPDATE ---
Update Note
Progress Note Update
Called by RN that current morphine dose of every hour is not holding patient. Gave increased dose of 2 mg now and started morphine drip at step 2.
[2025-01-15] MEDS: MORPHINE SULFATE 2 MG IV ×2 (07:52→08:13)
--- NOTE | 2025-01-15 08:00 | PTCARENOTE ---
Patient received from slot shift supervisor RN. Pt in bed screaming for help and the he's in pain. RN informed automation consultant and received a 1x dose morphine 2mg and a morphine drip pending from pharmacy. All family members in room.
[2025-01-15] MEDS: MORPHINE 100 IV (08:32)
--- NOTE | 2025-01-15 10:19 | CM ---
Patient from [facility] with Hx CVA, Parkinson's Disease with Dx unresponsive episode. MS gtt.
Spoke with ErnestineMARYA [facility];
the patient resided alone at [facility].
He was A/O, 'heavy assist of 2' for ADLs, stand-pivot transfers.
The patient was non-ambulatory and was [facility]
The patient was able to feed himself.
DME - RW, hi-back w/c
Current with [facility]
PCP - Dave Pacheco
Pharmacy - [facility]
Ernestine made aware patient will be staying here with hospice for pain control.
CM Consult: Hospice
Met with patient and 2 daughters, Yelitza and Zari;
Explained hospice philosophy & benefits.
Yelitza initially stated family did not want hospice however after additional explanations by nurse Lorraine, for help with pain management, daughters agreed.
Referral to [facility], Hospice; she wants to discuss with Greer ROSALES from hospice to decide if hospice vs comfort care.
Plan follow up after seen by Hospice.
--- NOTE | 2025-01-15 10:51 | W.PN.HOSP.TC ---
Today's Communication/Plan
-
Comfort measures
Assessment / Plan
Assessment / Plan
A/P: Patient is an 89y M with PMH significant for hypertension, ASCVD / prior CVA and L hemiparesis who [place] ED [place] with unresponsive episode and hypotension. Patient was started on pressors. Patient continued to decline with
persistent hypotension and increase in pressor requirement was noted. Patient received IV fluid resuscitation. Patient received antibiotics. Status post left lower extremity ultrasound negative for DVT. CT head with no acute intracranial
abnormality. Family decided against aggressive measures and stated they want patient to be comfortable. Patient was transition to comfort measures.
Assessment
Septic shock likely secondary to witnessed aspiration event with tachycardia, tachypnea
Unresponsive Episode secondary to the above
Witnessed Aspiration
LLE Edema / Discomfort
Leukocytosis
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
Lactic acidosis
ASCVD
Left Hemiparesis as Late Effect of CVA
Chronic Dysphagia as Late Effect of CVA
Parkinson's Disease
Anemia of Chronic Disease
Plan
Per family wishes patient was transition to comfort measures
Patient received morphine as needed pushes and patient remained with persistent pain and tachycardia
Patient was transitioned to morphine infusion. Patient pain seems to be currently controlled on morphine gtt.
Hospice consultation
DVT Prophylaxis: none comfort measures
Code Status: DNR
Discussed with multiple family members at bedside in details.
Anticipated Discharge: > 48 hours
Subjective/Interval History
-
Date of Service: January 15, 2025
Overnight events noted
Patient has been started on comfort measures currently
Patient is currently on morphine infusion
Pain seems to be alleviated
Objective Data
-
Labs:
Laboratory Results
01/15/25
05:19
WBC 15.4 H
Hgb 8.5 L
Hct 24.9 L
Plt Count 228
Sodium 135
Potassium 4.0
Chloride 109 H
Carbon Dioxide 20 L
BUN 25 H
Creatinine 1.1
Glucose 107 H
Calcium 8.0 L
Vital Signs:
Vital Signs
Temp Pulse Resp BP Pulse Ox
97.7 F 97 22 87/52 94
01/15/25 02:55 01/15/25 03:30 01/15/25 03:30 01/15/25 03:30 01/15/25 03:33
I&O
01/14/25 01/15/25 01/16/25
06:59 06:59 06:59
Intake Total 1200 / 1200
Output Total 250 / 250
Balance 950 / 950
Physical Exam
-
General: No Apparent Distress, Comfortable and Appears Chronically Ill; Negative Pain
HEENT: Nose Appears Normal and Ears Appear Normal
Respiratory: Accessory Resp Muscle Use
Musculoskeletal: Edema, Left Lower Extrem
Neuro: Sedated and Facial Droop (left side)
Psych: Calm
--- NOTE | 2025-01-15 12:24 | HOSPNOTE ---
Received referral for Hospice. After discussion with Greer Garcia, TESTING ANALYST for Hospice, at this time patient is not appropriate for GIP level of care. Patient to remain on Comfort Care and will reevaluate tomorrow - Dr Huang aware via TT
[2025-01-15] MEDS: NSS IV (12:50)
--- NOTE | 2025-01-15 15:56 | PTCARENOTE ---
Patient found with no spontaneous heart sounds or respirations; family at bedside; emotional support provided; Dr. Huang notified.
--- NOTE | 2025-01-15 16:00 | W.PN.DEATH ---
Pronouncement of
-
Called to see patient to pronounce.
No spontaneous heart tones or respirations noted.
Patient not responsive to verbal stimuli.
Patient is pronounced .
Time of : 15:50
Date of : 01/15/25
Cause of : Septic shock likely secondary to witnessed aspiration event
Lactic acidosis
Family Notified: Yes (condolence expressed to multiple family member at bedside. )
--- NOTE | 2025-01-15 16:09 | W.DCSUMMARY ---
Discharge Summary
Discharge Data
Date of Admission: 01/14/25
Date of Discharge: 01/15/25
-
Pending Results: No
Hospital Course
89y M with PMH significant for hypertension, ASCVD / prior CVA and L hemiparesis, anemia of chronic disease, Parkinson's disease, chronic dysphagia, left hemiparesis who presents to ED from [place] with unresponsive episode and hypotension. Patient
was started on pressors. Patient was found to have lactic acidosis. Patient was found to have troponin elevation which is nonischemic Myocard injury. Patient had leukocytosis. Patient continued to decline with persistent hypotension and increase
in pressor requirement was noted. Patient received IV fluid resuscitation. Patient received antibiotics. Status post left lower extremity ultrasound negative for DVT. CT head with no acute intracranial abnormality. Patient pressor requirement
continued to uptrend and patient will require need to be transferred to medical ICU for increasing pressor requirement and additional aggressive management. Family decided against aggressive measures and stated they want patient to be comfortable.
Patient was transition to comfort measures. Patient on 01/15/2025 at 12:50 PM. Postal Worker was called and spoke to TIFFANY CHOE who who stated patient body can be released to [facility]. Expressed condolences to multiple family was at bedside.
Discharge Plan
-
Patient Disposition:
Date/Time
Date/Time: 01/15/25 15:50
Discharge Date and Time
Print Language: CITIZEN OF [place]
== END 2025-01-15 15:50 | disposition expired | DRG 951 ==
LOC: 2 NORTH 21:40
PROVIDERS: ADMITTING PHYSICIAN Hospitalist; ATTENDING PHYSICIAN Hospitalist; EMERGENCY PHYSICIAN Student in an Organized Health Care Education/Training Program; FAMILY PHYSICIAN Family Medicine
DX: Z51.5 Encounter for palliative care (principal); R65.21 Severe sepsis with septic shock; J69.0 Pneumonitis due to inhalation of food and vomit; A41.9 Sepsis, unspecified organism; I69.354 Hemiplegia and hemiparesis following cerebral infarction affecting left non-dominant side; J98.4 Other disorders of lung; I25.10 Atherosclerotic heart disease of native coronary artery without angina pectoris; I69.391 Dysphagia following cerebral infarction; G20.A1 Parkinson's disease without dyskinesia, without mention of fluctuations; D63.8 Anemia in other chronic diseases classified elsewhere; Z66 Do not resuscitate
CPT/HCPCS: 70450; 71045; 80048; 80053; 80061; 81003; 81015; 83605; 84443; 84484; 85025; 85027; 87070; 93005; 93971; 96361; 96374; 99285